=== PATIENT | female | born 1965 | race Two or more races ===

== ENCOUNTER 2019-10-09 09:21 | Inpatient (IN) | payer OTHER ==
[2019-10-09 09:36] VITALS: BMI 22.9
[2019-10-09] MEDS ORDERED: SODIUM CHLORIDE 0.9% 500 ML INFUS.BAG IV ONE ×2 (10:22→11:45)
[2019-10-09] MEDS ORDERED: ONDANSETRON 4 MG/2 ML VIAL IVPUSH ONE (10:26)
[2019-10-09] MEDS ORDERED: ONDANSETRON 4 MG/2 ML VIAL ONE (10:29)
--- NOTE | 2019-10-09 11:06 | PDOC ---
History of Present Illness - General Chief Complaint: Urinary Problem Stated Complaint: PAINFUL URINATION Time Seen by Provider: 10/09/19 10:05 History Source: Patient Exam Limitations: No Limitations - History of Present Illness Initial Comments: 10/09/19 11:00 54-year-old female denies past medical history presents complaining of feeling fatigued, urinary frequency, low back pain, nausea and subjective fever, chills for 2 days with decreased appetite. Denies vomiting, hematuria, chest pain, shortness of breath, vaginal bleeding, vaginal discharge. ROS: GENERAL/CONSTITUTIONAL: Positive fever, chills, weakness HEAD, EYES, EARS, NOSE AND THROAT: No changes in vision, No ear pain or discharge, No sore throat CARDIOVASCULAR: No chest pain RESPIRATORY: No shortness of breath or cough GASTROINTESTINAL: No pain, nausea, vomiting, diarrhea or constipation GENITOURINARY: Urinary frequency, denies hematuria, dysuria MUSCULOSKELETAL: Low back pain SKIN: No rash NEUROLOGIC: No headache, vertigo, loss of consciousness, or loss of sensation PE: GENERAL: Appears uncomfortable HEAD: NCAT EYES: Pupils equal, round and reactive to light, sclera anicteric, conjunctiva clear ENT: pharynx: no erythema, no exudate, uvula midline NECK: supple CHEST: nontender RESP: clear, no w/r/r CARDIO: rrr, no m/g/r ABD: +BS, soft, minimal suprapubic tenderness to palpation, non distended, BACK: Bilateral CVAT EXTREMITIES: Normal range of motion, no edema NEUROLOGICAL: Normal speech, normal gait SKIN: Warm, Dry Past History - Past Medical History Allergies/Adverse Reactions: Allergies Allergy/AdvReac Type Severity Reaction Status Date / Time No Known Allergies Allergy Verified 10/09/19 09:33 COPD: No CHF: No DVT: No - Immunization History Immunization Up to Date: Yes - Psycho Social/Smoking Cessation Hx Smoking History: Never smoked Hx Alcohol Use: No Drug/Substance Use Hx: No *Physical Exam - Vital Signs Last Vital Signs Temp Pulse Resp BP Pulse Ox 97.9 F 109 H 18 105/68 99 10/09/19 09:33 10/09/19 09:33 10/09/19 09:33 10/09/19 09:33 10/09/19 09:33 ED Treatment Course - LABORATORY CBC & Chemistry Diagram: 10/09/19 10:53 10/09/19 10:21 - Medications Given in the ED: ED Medications Discontinued Medications Generic Name Dose Route Start Last Admin Trade Name Kristian PRN Reason Stop Dose Admin Ondansetron HCl 4 mg 10/09/19 10:26 10/09/19 10:53 Zofran Injection IVPUSH 10/09/19 10:27 4 mg ONCE ONE Administration Sodium Chloride 1,000 ml 10/09/19 10:22 10/09/19 10:53 Normal Saline - IV 10/09/19 10:23 1,000 ml ONCE ONE Administration Medical Decision Making - Medical Decision Making 10/09/19 11:04 54-year-old female denies past medical history presents complaining of urinary frequency, nausea, subjective fever and chills, suprapubic discomfort, decreased appetite for 2 days. Will rule out UTI versus pyelonephritis Ordered CBC, BMP, UA, urine culture IV fluids and IV Zofran Reassess 10/09/19 13:29 Reviewed labs and UA results UA > 5k bacteria, 3+ leukocytes, 2+ blood, + nitrites IV ceftriaxone 1gm and IV toradol 30mg ordered 2 L of IV fluids given and IV Zofran Patient tolerating p.o. Admit to Discharge - Discharge Information Problems reviewed: Yes Clinical Impression/Diagnosis: UTI (urinary tract infection) Qualifiers: Urinary tract infection type: site unspecified Hematuria presence: without hematuria Qualified Code(s): N39.0 - Urinary tract infection, site not specified Condition: Stable - Admission Yes - Follow up/Referral Referrals: Katerina Munson MD [Primary Care Provider] - - Patient Discharge Instructions - Post Discharge Activity
[2019-10-09 11:20] LABS: BASO % 0.3 % (0-2.0); EOS % 0.1 % (0-4.5); HEMOGLOBIN 13.4 GM/dL (10.7-15.3); LYMPH % 8.1 % (8-40); MCH 29.1 pg (25.7-33.7); MCHC 33.5 g/dl (32.0-36.0); MEAN CELL VOLUME 86.9 fl (80-96); MEAN PLT VOLUME 9.7 fl (7.5-11.1); MONO % 5.6 % (3.8-10.2); NEUT % 85.9 % (42.8-82.8); PLATELET COUNT 169 K/MM3 (134-434); RDW 12.8 % (11.6-15.6); WHITE BLOOD COUNT 14.5 K/mm3 (4.0-10.0)
[2019-10-09 11:25] LABS: EPI CELLS 1.2 /HPF (0-5/HPF); HYALINE CASTS 4 /lpf (0-8); PH,URINE 5.5 (5.0-8.0); URINE APPEARANCE TURBID; URINE BACTERIA 5191.4 /hpf (NEGATIVE); URINE BILIRUBIN NEGATIVE (NEGATIVE); URINE COLOR YELLOW; URINE GLUCOSE (UA) NEGATIVE (NEGATIVE); URINE KETONE NEGATIVE (NEGATIVE); URINE LEUK ESTERASE 3+ (NEGATIVE); URINE NITRITE POSITIVE (NEGATIVE); URINE PROTEIN 2+ (NEGATIVE); URINE RBC 10 /hpf (0-4); URINE WBC 1007 /hpf (0-5)
[2019-10-09] MEDS ORDERED: ACETAMINOPHEN 500 MG TABLET (FP) PO ONE (11:27)
[2019-10-09] MEDS ORDERED: ACETAMINOPHEN 325 MG TABLET (FP) ONE (11:51)
--- NOTE | 2019-10-09 12:40 | PDOC ---
*Physical Exam - Vital Signs Last Vital Signs Temp Pulse Resp BP Pulse Ox 97.9 F 109 H 18 105/68 99 10/09/19 09:33 10/09/19 09:33 10/09/19 09:33 10/09/19 09:33 10/09/19 09:33 ED Treatment Course - LABORATORY CBC & Chemistry Diagram: 10/09/19 10:53 10/09/19 10:21 - ADDITIONAL ORDERS Additional order review: Laboratory Results 10/09/19 10/09/19 10:53 10:22 Lactic Acid 1.9 Urine Color Yellow Urine Appearance Turbid Urine pH 5.5 Ur Specific [place] 1.007 L Urine Protein 2+ H Urine Glucose (UA) Negative Urine Ketones Negative Urine Blood 2+ H Urine Nitrite Positive H Urine Bilirubin Negative Urine Urobilinogen 1.0 Ur Leukocyte Esterase 3+ H Urine WBC (Auto) 1007 Urine RBC (Auto) 10 Urine Casts (Auto) 4 U Epithel Cells (Auto) 1.2 Urine Bacteria (Auto) 5191.4 10/09/19 10:53 RBC 4.60 MCV 86.9 MCHC 33.5 RDW 12.8 MPV 9.7 Neutrophils % 85.9 H Lymphocytes % 8.1 Monocytes % 5.6 Eosinophils % 0.1 Basophils % 0.3 - Medications Given in the ED: ED Medications Discontinued Medications Generic Name Dose Route Start Last Admin Trade Name Coreyq PRN Reason Stop Dose Admin Acetaminophen 1,000 mg 10/09/19 11:27 10/09/19 11:53 Tylenol - PO 10/09/19 11:28 1,000 mg ONCE ONE Administration Ondansetron HCl 4 mg 10/09/19 10:26 10/09/19 10:53 Zofran Injection IVPUSH 10/09/19 10:27 4 mg ONCE ONE Administration Sodium Chloride 1,000 ml 10/09/19 10:22 10/09/19 10:53 Normal Saline - IV 10/09/19 10:23 1,000 ml ONCE ONE Administration Sodium Chloride 1,000 ml 10/09/19 11:45 10/09/19 11:58 Normal Saline - IV 10/09/19 11:46 1,000 ml ONCE ONE Administration Medical Decision Making - Medical Decision Making 10/09/19 12:38 54-year-old female denies past medical history presents complaining of urinary frequency, nausea, subjective fever and chills, suprapubic discomfort Examination: lower abdominal tenderness to palpation No involuntary guarding or rebound Pt seen by Midlevel Provider under my direct supervision Pt interviewed and examined Ancillary studies reviewed Laboratory Tests 10/09/19 10/09/19 10/09/19 10:22 10:53 10:53 WBC 14.5 H Hgb 13.4 Hct 40.0 Plt Count 169 Lactic Acid 1.9 Ur Leukocyte Esterase 3+ H Urine WBC (Auto) 1007 Urine RBC (Auto) 10 Urine Bacteria (Auto) 5191.4 I agree with plan as outlined by Midlevel Provider Plan for IV Ceftriaxone and po abx as pt can tolerate po 10/09/19 12:40 10/09/19 13:26 I received a call from pt PMD stating she should be admitted Will Admit 10/09/19 16:26 Pt decided she wants to leave the ER Will discharge to home Pt PMD write her for Levaquin She is requesting that I send this abs to another pharmacy Will re write prescription and send to her local pharmacy Clinical impression: UTI, initial presentation Discharge - Discharge Information Problems reviewed: Yes Clinical Impression/Diagnosis: Pyelonephritis UTI (urinary tract infection) Qualifiers: Urinary tract infection type: site unspecified Hematuria presence: without hematuria Qualified Code(s): N39.0 - Urinary tract infection, site not specified Condition: Stable - Admission Yes - Follow up/Referral - Patient Discharge Instructions - Post Discharge Activity
[2019-10-09 12:58] LABS: ALBUMIN 4.3 g/dl (3.4-5.0); BILIRUBIN,TOTAL 1.5 mg/dL (0.2-1); BLOOD UREA NITROGEN 10.6 mg/dL (7-18); CALCIUM 9.2 mg/dL (8.5-10.1); CREATININE 0.8 mg/dL (0.55-1.3); POTASSIUM 3.5 mmol/L (3.5-5.1)
[2019-10-09] MEDS ORDERED: CEFTRIAXONE 1,000 MG in DEXTROSE 5%-WATER - 50 ML IVPB ONE (13:17)
[2019-10-09] MEDS ORDERED: KETOROLAC TROMETHAMINE 30 MG/1 ML VIAL IM ONE (13:18)
[2019-10-09] MEDS ORDERED: KETOROLAC TROMETHAMINE 30 MG/1 ML VIAL IVPUSH ONE (13:20)
[2019-10-09] MEDS ORDERED: CEFTRIAXONE 1 GM/50 ML BAG ONE (13:21)
[2019-10-09] MEDS ORDERED: KETOROLAC TROMETHAMINE 30 MG/1 ML VIAL ONE (13:21)
[2019-10-09 15:42] VITALS: TEMP 98.6
--- NOTE | 2019-10-09 16:05 | HP ---
Admitting History and Physical - Primary Care Physician PCP: Katerina Munson - Admission Chief Complaint: ABD/BACK PAIN History of Present Illness: PRESENTS WITH BACK PAIN DYSUREA 2 DAYS History Source: Medical Record - Smoking History Smoking history: Never smoked - Alcohol/Substance Use Hx Alcohol Use: No Home Medications - Allergies Allergies/Adverse Reactions: Allergies Allergy/AdvReac Type Severity Reaction Status Date / Time No Known Allergies Allergy Verified 10/09/19 09:33 - Home Medications Home Medications: Ambulatory Orders Fluconazole [Diflucan] 150 mg PO ONCE #1 tablet 10/09/19 Fluconazole [Diflucan] 150 mg PO ONCE PRN #1 tablet 10/09/19 levoFLOXacin [Levaquin -] 500 mg PO DAILY #4 tablet 10/09/19 levoFLOXacin [Levaquin -] 500 mg PO DAILY #7 tablet 10/09/19 Review of Systems - Review of Systems Genitourinary: reports: Flank Pain, Frequency Musculoskeletal: reports: Back Pain Physical Examination Vital Signs: Vital Signs Temperature 98.6 F 10/09/19 15:42 Pulse Rate 72 10/09/19 15:42 Respiratory Rate 18 10/09/19 15:42 Blood Pressure 110/56 L 10/09/19 15:42 O2 Sat by Pulse Oximetry (%) 100 10/09/19 15:42 Cardiovascular: Yes: WNL Respiratory: Yes: WNL Gastrointestinal: Yes: WNL Renal/: Yes: CVA Tenderness - Left, CVA Tenderness - Right, Other Labs: CBC, BMP 10/09/19 10:53 10/09/19 10:21 Problem List - Problems (1) Pyelonephritis Code(s): N12 - TUBULO-INTERSTITIAL NEPHRITIS, NOT SPCF ACUTE OR CHRONIC (2) UTI (urinary tract infection) Code(s): N39.0 - URINARY TRACT INFECTION, SITE NOT SPECIFIED Qualifiers: Urinary tract infection type: site unspecified Hematuria presence: without hematuria Qualified Code(s): N39.0 - Urinary tract infection, site not specified Assessment/Plan CEFTRIAXONE IV CHECK CULTURES PATIENT'S DAUGHTER ZALAMCALLED AND WANTS HER MOM TO LEAVE B/C THERE ARE NO BEDS IN THE HOSPITAL FLOORS AND HER MOM IS IN THE E.R. I EXPLAINED SHE WILL NEED IV ABX HOWEVER, WE CAN STAFF CERTIFIED NURSE MIDWIFE HER PO ABX AND SEND HER HOME. IF SHE FEELS SEVERE PAIN, FEVERS, N/V DIZZINESS TO RETURN TO THE E.D. IMMEDIATELY OR CALL 911.
--- NOTE | 2019-10-09 16:08 | DS ---
Physical Examination Vital Signs: Vital Signs Temperature 98.6 F 10/09/19 15:42 Pulse Rate 72 10/09/19 15:42 Respiratory Rate 18 10/09/19 15:42 Blood Pressure 110/56 L 10/09/19 15:42 O2 Sat by Pulse Oximetry (%) 100 10/09/19 15:42 Constitutional: Yes: No Distress Eyes: Yes: WNL HENT: Yes: WNL Neck: Yes: WNL Cardiovascular: Yes: WNL Respiratory: Yes: WNL Gastrointestinal: Yes: WNL Renal/: Yes: Other Labs: CBC, BMP 10/09/19 10:53 10/09/19 10:21 Discharge Summary Problems reviewed: Yes Reason For Visit: UTI,PYELONEPHRITIS Current Active Problems UTI (urinary tract infection) (Acute) Hospital Course: GIVEN IV ABX WILL DC HOME ON PO ABX NO BEDS IN FACILITY AND PT WANTS TO GO HOME Goals: COMPLETE LEVAQUIN 4 DAYS Condition: Stable - Instructions Diet, Activity, Other Instructions: SEE YOUR PRIMARY DOCTOR IN 1 WEEK IF YOU HAVE FEVER OR CHILLS OR ANY COMPLAINTS RETURN TO ED Referrals: Katerina Munson MD [Primary Care Provider] - Disposition: HOME - Home Medications Comprehensive Discharge Medication List: Ambulatory Orders Fluconazole [Diflucan] 150 mg PO ONCE #1 tablet 10/09/19 levoFLOXacin [Levaquin -] 500 mg PO DAILY #4 tablet 10/09/19
[2019-10-09 17:04] VITALS: BP 110/67; PULSE 76
--- NOTE | 2019-10-10 00:34 | PN ---
Teaching Attending Note Name of Resident: Beto Batista ATTENDING PHYSICIAN STATEMENT I saw and evaluated the patient. I reviewed the resident's note and discussed the case with the resident. I agree with the resident's findings and plan as documented. SUBJECTIVE: Patient is a 54 year old woman with no significant past medical history who was diagnosed with pyelonephritis earlier today when she presented to the ER with 2 days of urinary frequency, cloudy urine, bilateral flank, and abdominal pain. She got a dose of IV Ceftriaxone but her family signed her out AMA because there were no medical beds available. She got a dose of PO diflucan and was discharged on PO Levofloxacin. Daughter notes while at home the patient ate but then began to experience nausea, fevers, and worsening flank and abdominal pain , prompting their return to the ER. While in the ED, patient complains of mild shortness of breath. She denies any dysuria, hematuria, changes in strength or sensation. No recent travels or sick contacts. Denies tobacco, alcohol or illicit drug use. OBJECTIVE: Alert Vital Signs Period Temp Pulse Resp BP Sys/Davila Pulse Ox Last 24 Hr 97.9 F-98.6 F 72-109 18-18 105-110/56-68 99-100 HEENT: No Jaundice, eye redness or discharge, PERRLA, EOMI. Normocephalic, atraumatic. External ears are normal and hearing is grossly intact. No nasal discharge. Neck: Supple, nontender. No palpable adenopathy or thyromegaly. No JVD Chest: Good effort. Clear to auscultation and percussion. Heart: Regular. No S3, rub or murmur Abdomen: Not distended, soft, RUQ and bilateral CVA tenderness and no HSM. No rebound or guarding. Normal bowel sounds. Ext: Peripheral pulses intact. No leg edema. Skin: Warm and dry. No petechiae, rash or ecchymosis. Neuro: Alert. Oriented x3. CN 2-12 grossly intact. Sensation grossly intact in all four extremities and DTR are symmetric. Psych: Appropriate mood and affect. Good insight. Home Medications Medication Instructions Recorded Fluconazole [Diflucan] 150 mg PO ONCE #1 tablet 10/09/19 Fluconazole [Diflucan] 150 mg PO ONCE PRN #1 tablet 10/09/19 levoFLOXacin [Levaquin -] 500 mg PO DAILY #4 tablet 10/09/19 levoFLOXacin [Levaquin -] 500 mg PO DAILY #7 tablet 10/09/19 Abnormal Lab Results 10/09/19 10/09/19 10/09/19 10:21 10:53 10:53 WBC 14.5 H Absolute Neuts (auto) 12.4 H Neutrophils % 85.9 H Total Bilirubin 1.5 H AST 55 H ALT 94 H Alkaline Phosphatase 132 H Ur Specific [place] 1.007 L Urine Protein 2+ H Urine Blood 2+ H Urine Nitrite Positive H Ur Leukocyte Esterase 3+ H ASSESSMENT AND PLAN: 1. Pyelonephritis - Elevated LFTs are unexplained. Will get abdominal CT abdomen /pelvis, upper abdominal sonogram, repeat LFTs and lactic acid, get hepatitis serology and treat with IV NS in view of low normal BP. Will treat with IV Zosyn pending culture report - concerned that she may be infected by an organism not sensitive to ceftriaxone. EKG pending. Will continue comprehensive care for all of patients comorbid conditions. 2. DVT prophylaxis - Lovenox 40 mg SQ q 24 hours. 3. Advance directives - Full code
== END 2019-10-09 17:01 | disposition home or self-care (01) | DRG 463 ==
LOC: JER 09:21 → JERBED 13:29
PROVIDERS: ADMIT Family Medicine; ATTEND Family Medicine
DX: N10 Acute pyelonephritis (principal)
CPT/HCPCS: 36415; 80053; 81003; 83605; 85025; 87086; 87186; 99283-25

== ENCOUNTER 2019-10-09 23:19 | Inpatient (IN) | payer OTHER ==
[2019-10-09] MEDS ORDERED: KETOROLAC TROMETHAMINE 30 MG/1 ML VIAL IVPUSH ONE (23:47)
[2019-10-09] MEDS ORDERED: SODIUM CHLORIDE 0.9% 1000 ML INFUS.BAG IV ONE (23:47)
[2019-10-09] MEDS ORDERED: KETOROLAC TROMETHAMINE 30 MG/1 ML VIAL ONE (23:56)
--- NOTE | 2019-10-09 23:56 | PDOC ---
Documentation entered by Nithin Walker SCRIBE, acting as scribe for Andreina Smith DO. Andreina Smith, DO: This documentation has been prepared by the Denise contreras Nirvannie, SCRIBE, under my direction and personally reviewed by me in its entirety. I confirm that the documentation accurately reflects all work, treatment, procedures, and medical decision making performed by me. Attending Attestation - Resident Resident Name: Beto Mccollum - ED Attending Attestation I have performed the following: I have examined & evaluated the patient, The case was reviewed & discussed with the resident, I agree w/resident's findings & plan, Exceptions are as noted - HPI HPI: 10/10/19 00:13 The patient is a 54 year old female, with a significant past medical history of recent diagnosis of pyelonephritis (today), who presents to the emergency department with 2 days of urinary frequency, cloudy urine, bilateral flank, and abdominal pain. As per patients family translating, she was admitted to the ED today for UTI and pyelonephritis but, they signed out AMA secondary to no beds available. Daughter notes while at home the patient ate but then began to experience nausea, fevers, and worsening flank and abdominal pain, prompting their return to the ED. While in the ED, patient complains of mild shortness of breath. She denies any dysuria or hematuria. She denies any changes in strength or sensation. She denies any focal weakness. Allergies: NKDA Primary Care Physician: Dr. Munson - Physicial Exam PE: 10/10/19 00:13 Constitutional: +Warm to touch. +Uncomfortably appearing. Awake, alert, oriented. No acute distress. Head: Normocephalic. Atraumatic Eyes: PERRL. EOMI. Conjunctivae are not pale. ENT: Mucous membranes are moist and intact. Posterior pharynx without exudates or erythema. Uvula midline. Neck: Supple. Full ROM. No lymphadenopathy. Cardiovascular: +Tachycardic. Regular rhythm. S1, S2 regular. Distal pulses are 2+ and symmetric. Pulmonary/Chest: No evidence of respiratory distress. Clear to auscultation bilaterally No wheezing, rales or rhonchi. Abdominal: Soft and non-distended. No rebound, guarding or rigidity. No organomegaly. No palpable masses. Good bowel sounds. Back: +Bilateral CVA tenderness. Musculoskeletal: No edema. No cyanosis. No clubbing. Full range of motion in all extremities. No calf tenderness. Radial/pedal pulses are intact and 2+ bilaterally Skin: Skin is warm and dry. No petechiae. No purpura. Neurological: Alert and oriented to person, place, and time. Cranial nerves II -XII are grossly intact. Normal speech. Strength is grossly symmetric. No sensory deficits. Psychiatric: Good eye contact. Normal interaction, affect and behavior. - Medical Decision Making 10/10/19 00:17 I, Dr. Andreina Smith, DO, attest that this document has been prepared under my direction and personally reviewed by me in its entirety. I further attest, that it accurately reflects all work, treatment, procedures and medical decision -making performed by me. a/p: 54yo female dx with uti/pyelo earlier with worsening lower abd pain and flank pain R>L -suspect pyelo vs infected stone, ua earlier showed blood -will repeat labs, rocephin, ivf hydration, zofran -R>L flank pain and cva ttp -will send for spiral ct to eval of poss renal colic -will medicate and reasssess -last po meds were at 7p -pt appears sick 10/10/19 00:39 case discussed with LORENE who accepts pt to service Discharge - Discharge Information Problems reviewed: Yes Clinical Impression/Diagnosis: UTI (urinary tract infection), Pyelonephritis Condition: Guarded - Admission Yes - Follow up/Referral - Patient Discharge Instructions - Post Discharge Activity Heart Score/ECG Review - ECG Intrepretation Comment:: 10/09/19 23:55 sinus at 97, nl axis, nl inteval, no acute st/t wave findings
[2019-10-09] MEDS ORDERED: FAMOTIDINE 20 MG/50 ML IVPB 20 MG/50 ML MG IVPB ONE (23:58)
[2019-10-09] MEDS ORDERED: ONDANSETRON 4 MG/2 ML VIAL IVPUSH ONE (23:58)
--- NOTE | 2019-10-09 23:59 | PDOC ---
History of Present Illness - General Chief Complaint: Pain Stated Complaint: ABD PAIN ( REVISIT Time Seen by Provider: 10/09/19 23:39 History Source: Family Exam Limitations: Language Barrier (frisian) - History of Present Illness Initial Comments: 10/10/19 06:58 HPI: 54F w/o known PMH presenting with worsening abdominal and flank pain. Pt had 3 days of fevers and 1 day of b/l flank pain. Was seen in this ED during the day of 10/09/19 and subsequently admitted for IV abx. Pt later AMA'd 2/ not having a bed upstairs. Now back with worsening abdominal and flank pain. Denies dysuria , hematuria, frequency. Denies chest pain, sob. Endorses fevers, nausea w/o vomiting. PO tolerant. Past History - Past Medical History Allergies/Adverse Reactions: Allergies Allergy/AdvReac Type Severity Reaction Status Date / Time No Known Allergies Allergy Verified 10/09/19 23:47 Home Medications: Ambulatory Orders NK [No Known Home Medication] 10/10/19 COPD: No CHF: No DVT: No - Immunization History Immunization Up to Date: Yes - Psycho Social/Smoking Cessation Hx Smoking History: Never smoked Hx Alcohol Use: No Drug/Substance Use Hx: No Review of Systems - Review of Systems Comments:: 10/10/19 06:58 ROS: CONSTITUTIONAL: Denies F / C RESP: Denies SOB CARD: Denies chest pain, palpitations GI: Endorses flank pain and epigastric pain. Endorses nausea. Denies N / D, bloody stool, inability to tolerate PO : Denies dysuria, hematuria, frequency *Physical Exam - Vital Signs Last Vital Signs Temp Pulse Resp BP Pulse Ox 99.4 F 98 H 18 99/53 L 98 10/09/19 23:43 10/09/19 23:43 10/09/19 23:43 10/09/19 23:43 10/09/19 23:43 - Physical Exam 10/10/19 06:58 PE: GEN: acute discomfort. AAOx3 HEENT: NC/AT. No facial asymmetry. Normal voice. Supple neck w/ FROM. CV: S1/S2, RRR, no m/r/g LUNG: CTAB, no wheezes, crackles, rales, rhonchi. GI: +TTP of the epigastrium and suprapubically. +CVAT b/l; r > l. soft, ndnt, + BS, no guarding, no rebound. EXTREMITIES: No LE edema. No obvious deformities of all extremities. SKIN: warm, dry, normal turgor PSYCH: normal mood and affect NEURO: Moving all extremities well. ED Treatment Course - LABORATORY CBC & Chemistry Diagram: 10/10/19 00:16 10/10/19 00:16 - RADIOLOGY Radiology Studies Ordered: Category Date Time Status SPIRAL- RENAL-STONE CT [CT] Stat CT Scan 10/09/19 23:58 Ordered Medical Decision Making - Medical Decision Making 10/09/19 23:40 MDM: 54F with worsening b/l flank pain and fevers. DDx likely pyelonephritis, consider PUD, gastritis, colitis - cbc, cmp, lipase, lactate - bcx - ua, uc - abx - fluids - Spiral CT - Likely admit 10/10/19 00:30 Pt was endorsed to medicine team and admitted Discharge - Discharge Information Problems reviewed: Yes Clinical Impression/Diagnosis: Pyelonephritis UTI (urinary tract infection) Qualifiers: Urinary tract infection type: site unspecified Hematuria presence: without hematuria Qualified Code(s): N39.0 - Urinary tract infection, site not specified Condition: Guarded - Follow up/Referral - Patient Discharge Instructions - Post Discharge Activity
[2019-10-10] MEDS ORDERED: CEFTRIAXONE 1 GM in DEXTROSE 5%-WATER - 100 ML IVPB ONE
[2019-10-10] MEDS ORDERED: SODIUM CHLORIDE 0.9% 1000 ML INFUS.BAG IV ONE (00:06)
[2019-10-10] MEDS ORDERED: CEFTRIAXONE 1 GM/50 ML BAG ONE (00:29)
[2019-10-10] MEDS ORDERED: FAMOTIDINE 20 MG/50 ML IVPB 20 MG/50 ML MG IVPB ONE (00:29)
[2019-10-10] MEDS ORDERED: ONDANSETRON 4 MG/2 ML VIAL ONE ×3 (00:29→09:13)
[2019-10-10 00:38] LABS: BASO % 0.1 % (0-2.0); EOS % 0.1 % (0-4.5); HEMATOCRIT 34.3 % (32.4-45.2); HEMOGLOBIN 11.4 GM/dL (10.7-15.3); LYMPH % 6.7 % (8-40); MCHC 33.3 g/dl (32.0-36.0); MEAN PLT VOLUME 9.5 fl (7.5-11.1); MONO % 9.2 % (3.8-10.2); NEUT % 83.9 % (42.8-82.8); PLATELET COUNT 141 K/MM3 (134-434); RBC 3.94 M/mm3 (3.60-5.2); RDW 12.7 % (11.6-15.6); WHITE BLOOD COUNT 12.1 K/mm3 (4.0-10.0)
[2019-10-10 01:17] LABS: ALBUMIN 3.1 g/dl (3.4-5.0); BLOOD UREA NITROGEN 10.8 mg/dL (7-18); CALCIUM 8.4 mg/dL (8.5-10.1); CREATININE 0.7 mg/dL (0.55-1.3); POTASSIUM 3.7 mmol/L (3.5-5.1); TOT PROT 6.1 g/dl (6.4-8.2)
[2019-10-10 01:32] LABS: HYALINE CASTS 1 /lpf (0-8); URINE APPEARANCE CLEAR; URINE BILIRUBIN NEGATIVE (NEGATIVE); URINE COLOR YELLOW; URINE GLUCOSE (UA) NEGATIVE (NEGATIVE); URINE KETONE TRACE (NEGATIVE); URINE LEUK ESTERASE 1+ (NEGATIVE); URINE NITRITE NEGATIVE (NEGATIVE); URINE PROTEIN TRACE (NEGATIVE); URINE RBC 3 /hpf (0-4); URINE UROBILINOGEN 4.0 E.U/dl mg/dL (0.2-1.0); URINE WBC 39 /hpf (0-5)
[2019-10-10] MEDS ORDERED: ACETAMINOPHEN 1000 MG/100 ML VIAL (NON FORMULARY) IVPB ONE (01:44)
[2019-10-10] MEDS ORDERED: MORPHINE SULFATE 2 MG/ML VIAL IVPUSH PRN (01:46)
[2019-10-10] MEDS ORDERED: ONDANSETRON 4 MG/2 ML VIAL IVPUSH PRN (01:51)
--- NOTE | 2019-10-10 01:52 | HP ---
CHIEF COMPLAINT: Fever, abdominal pain PCP: Dr. Munson HISTORY OF PRESENT ILLNESS: Pt. is a 54 y.o. F w/o PMHx. presenting for the second admission today for abdominal pain and fevers secondary to urinary tract infection. History provided by daughter at bedside who assisted in translation. Pt. received IV ceftriaxone and Diflucan duriong hospital stay. Pt. was discharged earlier today because of the unavailability of beds in the hospital on Levaquin and Diflucan. Pt. was instructed to return if she was experiencing fevers or worsening abdominal pain. Pt. states she has only had on UTI in the past, unclear of when. Pt. endorses sensation of incomplete voiding, nausea without vomiting which has since subsided since receiving zofran. Pt. endorses b /l flank pain that radiates to her suprapubic region. Pt. endorses decreased PO intake over the last 3 days, last BM was Monday, and dry mouth. Pt. denies any chest pain, shortness of breath, hematuria, history of renal stones or any family history of renal disorders. Pt. states she last had colonoscopy 15 years ago and was treated for bacterial infection? Pt. endorses unremarkable EGD at that time as well. Pt. denies having an ALUMINUM CONTAINER TESTER and denies having a Pap Smear done. Pt. denies having Flu shot. ER course was notable for: (1)2L IVF, CBC, CMP, Spiral CT (2) Toradol, Zofran, Ceftriaxone (3) BCx. and UCx. pending from initial presentation Recent Travel: No PAST MEDICAL HISTORY: None PAST SURGICAL HISTORY: None Social History: Smoking: Denies Alcohol: Denies Drugs: Denies Allergies No Known Allergies Allergy (Verified 10/09/19 23:47) HOME MEDICATIONS: Home Medications Medication Instructions Recorded Fluconazole [Diflucan] 150 mg PO ONCE #1 tablet 10/09/19 Fluconazole [Diflucan] 150 mg PO ONCE PRN #1 tablet 10/09/19 levoFLOXacin [Levaquin -] 500 mg PO DAILY #4 tablet 10/09/19 levoFLOXacin [Levaquin -] 500 mg PO DAILY #7 tablet 10/09/19 REVIEW OF SYSTEMS As above. PHYSICAL EXAMINATION Vital Signs - 24 hr 10/09/19 23:43 Temperature 99.4 F Pulse Rate 98 H Respiratory 18 Rate Blood Pressure 99/53 L O2 Sat by Pulse 98 Oximetry (%) GENERAL: Awake, alert, and fully oriented, in mild distress 2/2 pain. HEAD: Normal with no signs of trauma. EYES: Extraocular movements intact, sclera anicteric, conjunctiva clear. EARS, NOSE, THROAT: Ears normal, nares patent, oropharynx clear without exudates. Dry mucous membranes. NECK: Normal range of motion, supple without lymphadenopathy, JVD, or masses. LUNGS: Breath sounds equal, clear to auscultation bilaterally. No wheezes, and no crackles. No accessory muscle use. HEART: Regular rate and rhythm, normal S1 and S2 without murmur ABDOMEN: Soft, diffuse tenderness to palpation most prominent in suprapubic region LLQ, RLQ and RUQ, not distended, normoactive bowel sounds, guarding MUSCULOSKELETAL: Normal range of motion at all joints. No bony deformities or tenderness. b/l CVA tenderness however more prominent on R. UPPER EXTREMITIES: warm, well-perfused. No cyanosis. No clubbing. No peripheral edema. LOWER EXTREMITIES: 2+ dorsal pedal pulses, warm, well-perfused. No calf tenderness. No peripheral edema. NEUROLOGICAL: Cranial nerves II-XII grossly intact. Normal speech. Gait not assessed. PSYCHIATRIC: Cooperative. Good eye contact. Appropriate mood and affect. SKIN: Warm, dry, normal turgor, no rashes or lesions noted Laboratory Results - last 24 hr 10/10/19 10/10/19 10/10/19 00:16 00:16 00:16 WBC 12.1 H RBC 3.94 Hgb 11.4 Hct 34.3 MCV 87.0 MCH 29.0 MCHC 33.3 RDW 12.7 Plt Count 141 MPV 9.5 Absolute Neuts (auto) 10.2 H Neutrophils % 83.9 H Lymphocytes % 6.7 L Monocytes % 9.2 Eosinophils % 0.1 Basophils % 0.1 Nucleated RBC % 0 PTT (Actin FS) 33.6 Sodium Potassium Chloride Carbon Dioxide Anion Gap BUN Creatinine Est GFR (CKD-EPI)AfAm Est GFR (CKD-EPI)NonAf Random Glucose Lactic Acid Calcium Total Bilirubin AST ALT Alkaline Phosphatase Creatine Kinase 43 Troponin I < 0.02 Total Protein Albumin Lipase Urine Color Urine Appearance Urine pH Ur Specific [place] Urine Protein Urine Glucose (UA) Urine Ketones Urine Blood Urine Nitrite Urine Bilirubin Urine Urobilinogen Ur Leukocyte Esterase Urine WBC (Auto) Urine RBC (Auto) Urine Casts (Auto) U Epithel Cells (Auto) Urine Bacteria (Auto) 10/10/19 10/10/19 10/10/19 00:16 00:16 01:08 WBC RBC Hgb Hct MCV MCH MCHC RDW Plt Count MPV Absolute Neuts (auto) Neutrophils % Lymphocytes % Monocytes % Eosinophils % Basophils % Nucleated RBC % PTT (Actin FS) Sodium 140 Potassium 3.7 Chloride 107 Carbon Dioxide 25 Anion Gap 8 BUN 10.8 Creatinine 0.7 Est GFR (CKD-EPI)AfAm 113.05 Est GFR (CKD-EPI)NonAf 97.54 Random Glucose 113 H Lactic Acid 1.0 Calcium 8.4 L Total Bilirubin 2.0 H AST 40 H ALT 71 H Alkaline Phosphatase 133 H Creatine Kinase Troponin I Total Protein 6.1 L Albumin 3.1 L Lipase 70 L Urine Color Yellow Urine Appearance Clear Urine pH 7.0 D Ur Specific [place] 1.009 L Urine Protein Trace Urine Glucose (UA) Negative Urine Ketones Trace H Urine Blood Trace Urine Nitrite Negative Urine Bilirubin Negative Urine Urobilinogen 4.0 e.u/dl H Ur Leukocyte Esterase 1+ H Urine WBC (Auto) 39 Urine RBC (Auto) 3 Urine Casts (Auto) 1 U Epithel Cells (Auto) 5.0 Urine Bacteria (Auto) 6.0 ASSESSMENT/PLAN: Pt. is a 54 y.o. F w/o PMHx. presenting for the second admission today for abdominal pain and fevers secondary to urinary tract infection. #Sepsis 2/2 Pyelonephritis Initial UA: 2+ protein, 2+ blood, Nitrite +, 3+ LE, 1007 WBCs and 5000+ bacteria --> Rpt. shows improvement in all areas CVA tenderness WBC: 14.5-->12.1 will start Zosyn, ID consult to Dr. Daigle appreciated f/u Spiral CT for stone, if Pt. has renal stone will upgrade Abx. to Carbapenem as per Uptodate aggressive IVF hydration LA: 1.9 Toradol and Morphine for pain control trend BMPs to monitor renal function monitor Is and Os--> if low output will bladder scan and consider placing Muse #Transaminitis associated with Hyperbilirubinemia Tbili 1.5-->2.0 AST/ALT now downtrending f/u CT scan f/u Abd. US elevation may be secondary to sepsis and borderline low BP, will obtain imaging to r/o concomitant cholecystitis #FEN NS @ 125 monitor electrolytes and replete as needed Regular Diet #DVT Ppx. Hep SQ TID Visit type - Emergency Visit Emergency Visit: Yes ED Registration Date: 10/10/19 Care time: The patient presented to the Emergency Department on the above date and was hospitalized for further evaluation of their emergent condition. - New Patient This patient is new to me today: Yes Date on this admission: 10/10/19 - Critical Care Critical Care patient: No ATTENDING PHYSICIAN STATEMENT I saw and evaluated the patient. I reviewed the resident's note and discussed the case with the resident. I agree with the resident's findings and plan as documented. SUBJECTIVE: OBJECTIVE: ASSESSMENT AND PLAN:
[2019-10-10] MEDS ORDERED: SODIUM CHLORIDE 1,000 ML IV SCH (02:00)
[2019-10-10] MEDS ORDERED: ONDANSETRON 4 MG/2 ML VIAL IVPUSH ONE (02:05)
[2019-10-10] MEDS ORDERED: ACETAMINOPHEN INJECTION 100 ML IVPB ONE (02:14)
[2019-10-10] MEDS ORDERED: PIPERACILLIN/TAZOB 3.375 GM 3.375 GM/50 ML BAG IVPB ONE ×2 (04:54→10:05)
[2019-10-10] MEDS: PIPERACILLIN/TAZOB 3.375 GM 3.375 GM in DEXTROSE 5%-WATER - 50 ML IVPB SCH ×3 (05:00→11:47)
[2019-10-10] MEDS ORDERED: HEPARIN NA (PORCINE) 5,000 UNITS/ML 1ML VIAL ONE (06:11)
[2019-10-10] MEDS: HEPARIN NA (PORCINE) 5,000 UNITS/ML 1ML VIAL SQ SCH ×3 (06:23→21:12)
[2019-10-10 06:46] LABS: BASO % 0.2 % (0-2.0); EOS % 0.1 % (0-4.5); HEMATOCRIT 30.6 % (32.4-45.2); HEMOGLOBIN 10.3 GM/dL (10.7-15.3); MCH 29.5 pg (25.7-33.7); MCHC 33.7 g/dl (32.0-36.0); MEAN CELL VOLUME 87.5 fl (80-96); MEAN PLT VOLUME 9.3 fl (7.5-11.1); MONO % 11.7 % (3.8-10.2); PLATELET COUNT 125 K/MM3 (134-434); RDW 12.5 % (11.6-15.6); WHITE BLOOD COUNT 11.9 K/mm3 (4.0-10.0)
[2019-10-10 07:06] LABS: INR 2.14 (0.83-1.09); PROTHROMBIN TIME (PATIENT) 25.4 SEC (9.7-13.0)
[2019-10-10 07:09] LABS: ALBUMIN 2.6 g/dl (3.4-5.0); BILIRUBIN,TOTAL 1.9 mg/dL (0.2-1); BLOOD UREA NITROGEN 8.3 mg/dL (7-18); CALCIUM 7.7 mg/dL (8.5-10.1); CREATININE 0.6 mg/dL (0.55-1.3); MAGNESIUM 1.8 mg/dL (1.8-2.4); PHOSPHOROUS 2.6 mg/dL (2.5-4.9); POTASSIUM 3.8 mmol/L (3.5-5.1); TOT PROT 5.2 g/dl (6.4-8.2)
[2019-10-10] MEDS ORDERED: KETOROLAC TROMETHAMINE 15 MG/ML VIAL ONE (09:13)
[2019-10-10] MEDS: KETOROLAC TROMETHAMINE 15 MG/ML VIAL IVPUSH PRN ×2 (09:23→17:29)
--- NOTE | 2019-10-10 11:30 | PN ---
Progress Note (short form) - Note Progress Note: ID consult dictated imp/reccd bilateral pyelonehritis right greater then left UTI abnormal LFTS continue zosyn f/u cultures f/u ultrasound Problem List - Problems (1) Pyelonephritis Code(s): N12 - TUBULO-INTERSTITIAL NEPHRITIS, NOT SPCF ACUTE OR CHRONIC (2) UTI (urinary tract infection) Code(s): N39.0 - URINARY TRACT INFECTION, SITE NOT SPECIFIED Qualifiers: Urinary tract infection type: site unspecified Hematuria presence: without hematuria Qualified Code(s): N39.0 - Urinary tract infection, site not specified (3) Abnormal LFTs Code(s): R94.5 - ABNORMAL RESULTS OF LIVER FUNCTION STUDIES
--- NOTE | 2019-10-10 11:58 | EKG ---
Test Reason : Blood Pressure : / mmHG Vent. Rate : 097 BPM Atrial Rate : 097 BPM P-R Int : 132 ms QRS Dur : 084 ms QT Int : 336 ms P-R-T Axes : 054 060 048 degrees QTc Int : 426 ms NORMAL SINUS RHYTHM NORMAL ECG NO PREVIOUS ECGS AVAILABLE Confirmed by MOMO DIAZ, CYNTHIA ([id number]) on 10/10/2019 11:57:50 AM Referred By: Confirmed By:CYNTHIA BARR MD
--- NOTE | 2019-10-10 11:59 | CONS ---
INFECTIOUS DISEASE CONSULTATION DATE OF CONSULTATION: DATE OF DICTATION: 10/10/2019 HISTORY: This is a 54-year-old woman otherwise healthy. She was originally seen in the emergency room on the . At that time, she had presented with some fatigue and some fevers and chills for 2 days. This is on the . She had no vomiting. She had no diarrhea, chest pain. She was noted to have pyuria in the ER. She had bilateral CVA discomfort, and she was noted to have a white count of 14.5. She was given ceftriaxone, given 2 L of fluid, and she was admitted. She was discharged later in the day as there were not enough beds, and she wanted to go home. She was discharged on Levaquin and Diflucan. She returned again the same evening with continued complaints of not feeling well and continued fever. She had worsening flank and abdominal pain. She denies any dysuria. She has no hematuria. There has been no recent travel. MEDICATIONS: She takes no medications regularly. She was started on Levaquin and Diflucan yesterday, which she has not started. SOCIAL HISTORY: Her PCP is Dr. Munson. She got an influenza shot this year. No history of cigarette, alcohol, or substance use. She apparently works in a school. PAST MEDICAL HISTORY: Unremarkable. PAST SURGICAL HISTORY: Unremarkable. REVIEW OF SYSTEMS: As per HPI. PHYSICAL EXAMINATION: Vital Signs: She is afebrile. Her maximum temperature is 99.4, pulse is 89, blood pressure 108/67, respiratory rate 21. She is saturating 100% on room air. HEENT: She is normocephalic. Her eyes are anicteric. Neck: Supple. Lungs: Clear to auscultation. Heart: Regular rate and rhythm. Abdomen: Soft. She has right upper quadrant tenderness to palpation. She has bilateral tenderness right greater than left. She has no suprapubic pain. White count on the was 14.5, today is 11.5, hemoglobin 10.3, platelets 125. Her BUN 8, creatinine 0.6. Interestingly, her LFTs on the and last night were elevated with a total bilirubin of 2, AST 40, ALT 71, alkaline phosphatase 133. Urine culture from the is growing greater than 100,000 nonlactose pain coordinator. Blood cultures are pending. She had a CAT scan done in the ER that was notable for mild bibasilar atelectatic changes, mild stranding around the right lower kidney pole consistent with possible pyelonephritis. She has no acute appendicitis. Cannot rule out cystitis. Mild dilatation of the left ureter without evidence of obstructing stone. Liver, spleen, pancreas were normal. Urinalysis of the right upper quadrant was done and is pending. In summary, this is a 54-year-old woman admitted with pyelonephritis and abnormal LFTs. I think it would be reasonable given the nonlactose pain coordinator growing in her urine to continue her on piperacillin, tazobactam with further follow up of cultures. Would follow up the ultrasound of her abdomen to evaluate it for biliary disease and follow up her LFTs as well. Further recommendations to follow. James IBARRA/[id number]
--- NOTE | 2019-10-10 12:07 | PN ---
Progress Note, Physician Chief Complaint: UTI Abdominal Pain History of Present Illness: Previous notes and events reviewed awake and alert NAD complain of abdominal pain leukocytosis - Current Medication List Current Medications: Active Medications Heparin Sodium (Porcine) (Heparin -) 5,000 unit SQ TID CHARLES Last Admin: 10/10/19 06:23 Dose: 5,000 unit Sodium Chloride (Normal Saline -) 1,000 mls @ 125 mls/hr IV ASDIR CHARLES Stop: 10/11/19 09:59 Last Admin: 10/10/19 04:00 Dose: 125 mls/hr Piperacillin Sod/Tazobactam (Sod 4.5 gm/ Dextrose) 100 mls @ 200 mls/hr IVPB Q8H-IV CHARLES; Protocol Ketorolac Tromethamine (Toradol Injection -) 15 mg IVPUSH Q6H PRN PRN Reason: PAIN LEVEL 4 - 6 Stop: 10/15/19 01:45 Last Admin: 10/10/19 09:23 Dose: 15 mg Morphine Sulfate (Morphine Sulfate) 2 mg IVPUSH Q4H PRN PRN Reason: PAIN LEVEL 7 - 10 Ondansetron HCl (Zofran Injection) 4 mg IVPUSH Q6H PRN PRN Reason: NAUSEA - Objective Vital Signs: Vital Signs Temperature 98.1 F 10/10/19 11:46 Pulse Rate 84 10/10/19 11:46 Respiratory Rate 21 H 10/10/19 09:15 Blood Pressure 109/65 10/10/19 11:46 O2 Sat by Pulse Oximetry (%) 100 10/10/19 11:46 Constitutional: Yes: No Distress, Calm Eyes: Yes: Conjunctiva Clear HENT: Yes: Atraumatic Cardiovascular: Yes: Regular Rate and Rhythm Respiratory: Yes: Regular, CTA Bilaterally Gastrointestinal: Yes: Normal Bowel Sounds, Soft, Tenderness (diffuse), Tenderness, Epigastrium Musculoskeletal: Yes: WNL Extremities: Yes: WNL Edema: No Neurological: Yes: Alert, Oriented Psychiatric: Yes: Alert, Oriented Labs: CBC, BMP 10/10/19 05:40 10/10/19 05:40 INR, PTT INR 2.14 (0.83-1.09) H 10/10/19 05:40 Problem List - Problems (1) Epigastric abdominal pain Assessment/Plan: -Abdominal US shows thickening of gallbladder wall with a questionable small sludge and without evidence of gallstones, positive Fields's sign, cannot rule out acute cholecystitis, right hepatic lobe echogenic lesion 2.3cmin maximum dimension that may represent cavernous hemangioma -CTAP shows minimal bibasal atelectatic changes, mild stranding around the right renal lower pole with minimal edema, cannot rule out right pyelonephritis , epiploic appendagitis of the adjacent ascending colon. appendocloth without CT evidence of acute appendicitis, mild smooth thickening of the urinary bladder wall likely due to inadequate distention, mild dilatation of left ureter , without gross evidence of obstructing stone -leukocytosis -afebrile -Surgery Consult -HIDA scan with EF ordered -pain control -IV hydration -NPO Code(s): R10.13 - EPIGASTRIC PAIN (2) Abnormal LFTs Assessment/Plan: -monitor LFTs daily -LFTs showing downtrend -AST 27, ALT 57, Alk Phos 112 Code(s): R94.5 - ABNORMAL RESULTS OF LIVER FUNCTION STUDIES (3) Pyelonephritis Assessment/Plan: -ID consult -Leukocytosis -afebrile -Zosyn -received Ceftriaxone in ER -pain control -CTAP shows minimal bibasal atelectatic changes, mild stranding around the right renal lower pole with minimal edema, cannot rule out right pyelonephritis , epiploic appendagitis of the adjacent ascending colon. appendocloth without CT evidence of acute appendicitis, mild smooth thickening of the urinary bladder wall likely due to inadequate distention, mild dilatation of left ureter , without gross evidence of obstructing stone -BC and UC pending Code(s): N12 - TUBULO-INTERSTITIAL NEPHRITIS, NOT SPCF ACUTE OR CHRONIC (4) UTI (urinary tract infection) Assessment/Plan: -ID consult -Leukocytosis -afebrile -Zosyn -received Ceftriaxone in ER -pain control -CTAP shows minimal bibasal atelectatic changes, mild stranding around the right renal lower pole with minimal edema, cannot rule out right pyelonephritis , epiploic appendagitis of the adjacent ascending colon. appendocloth without CT evidence of acute appendicitis, mild smooth thickening of the urinary bladder wall likely due to inadequate distention, mild dilatation of left ureter , without gross evidence of obstructing stone -UA shows 1+, trace ketones -UC pending Code(s): N39.0 - URINARY TRACT INFECTION, SITE NOT SPECIFIED Qualifiers: Urinary tract infection type: site unspecified Hematuria presence: without hematuria Qualified Code(s): N39.0 - Urinary tract infection, site not specified Assessment/Plan see problem list dvt ppx
[2019-10-10] MEDS ORDERED: MORPHINE SULFATE 2 MG/ML VIAL ONE (12:44)
[2019-10-10] MEDS: DEXTROSE 5%-NORMAL SALINE 1,000 ML IV SCH ×2 (12:46→17:23)
[2019-10-10 16:48] VITALS: BMI 25.1
--- NOTE | 2019-10-10 16:51 | CON.GI ---
Consult Consult Specialty:: GI Referred by:: Hospitalist Service - History Source History Provided By: Patient, Family Member Limitations to Obtaining History: No Limitations - Past Medical History Additional Medical History: denies - Past Surgical History Additional Surgical History: , right knee arthroscopy - Alcohol/Substance Use Hx Alcohol Use: No History of Substance Use: reports: None - Smoking History Smoking history: Never smoked - Social History Usual Living Arrangement: With Child ADL: Independent Place of : Other ([place]) Came to [place]year[place] 2017 Home Medications - Allergies Allergies/Adverse Reactions: Allergies Allergy/AdvReac Type Severity Reaction Status Date / Time No Known Allergies Allergy Verified 10/09/19 23:47 - Home Medications Home Medications: Ambulatory Orders NK [No Known Home Medication] 10/10/19 Family Medical History Other Family History: Mother: Alive: DM II. Father: : [place]: 60. 3 brothers/ 2 sisters: healthy. 3 daughters, 1 son: healthy. no fam h/o cancer Review of Systems - Review of Systems Constitutional: reports: Fever Respiratory: denies: Cough Gastrointestinal: reports: Abdominal Pain Genitourinary: reports: Dysuria Physical Exam-GI Vital Signs: Vital Signs Temperature 98.1 F 10/10/19 11:46 Pulse Rate 74 10/10/19 12:00 Respiratory Rate 16 10/10/19 12:00 Blood Pressure 108/63 10/10/19 12:00 O2 Sat by Pulse Oximetry (%) 99 10/10/19 12:00 Constitutional: Yes: Calm Eyes: No: Sclera Icterus Cardiovascular: Yes: Regular Rate and Rhythm Respiratory: Yes: CTA Bilaterally Gastrointestinal Inspection: No: Scars ...Auscultate: Yes: Normoactive Bowel Sounds ...Palpate: Yes: Tenderness (ruq. + gandhi's). No: Hepatomegaly, Soft, Splenomegaly ...Percussion: No: Tympanitic Edema: LLE: 1+, RLE: 1+ Neurological: Yes: Alert Labs: CBC, BMP 10/10/19 05:40 10/10/19 05:40 INR, PTT INR 2.14 (0.83-1.09) H 10/10/19 05:40 Hepatic Panel Total Bilirubin 1.9 mg/dL (0.2-1) H 10/10/19 05:40 AST 27 U/L (15-37) 10/10/19 05:40 ALT 57 U/L (13-61) 10/10/19 05:40 Alkaline Phosphatase 112 U/L (45-117) 10/10/19 05:40 Albumin 2.6 g/dl (3.4-5.0) L 10/10/19 05:40 Problem List - Problems (1) Right upper quadrant abdominal pain Assessment/Plan: with associated right flank and back pain: Thickened GB, however also with ? thickened portion of right kidney with urinary symptoms ? pyelo, ? acalculous cholecystitis. ? if LFTS reactive Improved on IV Abx NPO Surgical eval ID eval HIDA performed. Result pending Eval of possible pyelo per primary team Code(s): R10.11 - RIGHT UPPER QUADRANT PAIN
[2019-10-10] MEDS ORDERED: PIPERACILLIN/TAZOBACTAM 4.5 GM VIAL IVPB ONE (17:07)
[2019-10-10] MEDS ORDERED: DEXTROSE 5%-WATER 100 ML IVPB ONE (17:07)
[2019-10-10] MEDS: PIPERACILLIN/TAZOB 4.5 GM 4.5 GM in DEXTROSE 5%-WATER 100 ML IVPB SCH (17:21)
--- NOTE | 2019-10-10 17:28 | CON.GI ---
Consult Consult Specialty:: GI Referred by:: Dr. Munson Reason for Consultation:: Liver lesion - History of Present Illness Chief Complaint: Abdominal pain. Daughter aiding in interpretation as patient speaks azeri History of Present Illness: 54F admitted for evaluation of fevers. Also developed ruq/back pain. Pain started monday. Developed urinary burning after urinating monday as well. No change with meals. Noticed diminished appetite. + fever at home with nausea. Noted thickened portion of right kidney and bladder on CT scan. liver lesion noted as well. Noted thickened GB wall on US without gallstones. No simiar episodes in the past. INR was elevated. No H/O liver disease. LFTs were elevated, now improving. - History Source History Provided By: Patient, Family Member Limitations to Obtaining History: No Limitations - Past Medical History Additional Medical History: denies - Past Surgical History Additional Surgical History: , right knee arthroscopy - Alcohol/Substance Use Hx Alcohol Use: No History of Substance Use: reports: None - Smoking History Smoking history: Never smoked - Social History Usual Living Arrangement: With Child () ADL: Independent Place of : Other ([place]) History of Recent Travel: No Home Medications - Allergies Allergies/Adverse Reactions: Allergies Allergy/AdvReac Type Severity Reaction Status Date / Time No Known Allergies Allergy Verified 10/09/19 23:47 - Home Medications Home Medications: Ambulatory Orders NK [No Known Home Medication] 10/10/19 Family Medical History Other Family History: Mother: Alive: DM II. Father: : 60: [place]. 3 brothers, 4 sisters: healthy. 3 daughters, 1 son: healthy. No family h/o cancer, liver dz Review of Systems - Review of Systems Constitutional: reports: Chills, Fever Respiratory: denies: Cough Gastrointestinal: reports: Abdominal Pain, Nausea Genitourinary: reports: Burning, Dysuria Physical Exam-GI Vital Signs: Vital Signs Temperature 99.1 F 10/10/19 16:42 Pulse Rate 84 10/10/19 16:42 Respiratory Rate 20 10/10/19 16:42 Blood Pressure 101/57 L 10/10/19 16:42 O2 Sat by Pulse Oximetry (%) 98 10/10/19 16:42 Constitutional: Yes: Calm Eyes: No: Sclera Icterus Cardiovascular: Yes: Regular Rate and Rhythm. No: Murmur Respiratory: Yes: CTA Bilaterally Gastrointestinal Inspection: No: Distention ...Auscultate: Yes: Normoactive Bowel Sounds ...Palpate: Yes: Tenderness (TTP RUQ, + gandhi's. + right flank tenderness) ...Percussion: No: Tympanitic Edema: LLE: Trace, RLE: Trace Neurological: Yes: Alert Labs: CBC, BMP 10/10/19 05:40 10/10/19 05:40 INR, PTT INR 2.14 (0.83-1.09) H 10/10/19 05:40 Hepatic Panel Total Bilirubin 1.9 mg/dL (0.2-1) H 10/10/19 05:40 AST 27 U/L (15-37) 10/10/19 05:40 ALT 57 U/L (13-61) 10/10/19 05:40 Alkaline Phosphatase 112 U/L (45-117) 10/10/19 05:40 Albumin 2.6 g/dl (3.4-5.0) L 10/10/19 05:40 Imaging - Results Cat Scan: Report Reviewed, Image Reviewed Ultrasound: Report Reviewed Problem List - Problems (1) Right upper quadrant abdominal pain Assessment/Plan: with associated right flank and back pain: Thickened GB, however also with ? thickened portion of right kidney with urinary symptoms ? pyelo, ? acalculous cholecystitis. ? if LFTS reactive Improved on IV Abx NPO Surgical eval ID eval HIDA performed. Result pending Eval of possible pyelo / thickened bladder per primary team Code(s): R10.11 - RIGHT UPPER QUADRANT PAIN (2) Liver lesion Assessment/Plan: will anh further evaluation with contrast imaging. Discussed with daughter. gave her my office card to arrange follow-up Check hepatitis A/B/C serologies Code(s): K76.9 - LIVER DISEASE, UNSPECIFIED (3) Coagulopathy Assessment/Plan: Unclear cause of elevated INR. No h/o liver disease Checking hepatitis serologies Consider heme eval Ordered repeat PT/INR Code(s): D68.9 - COAGULATION DEFECT, UNSPECIFIED
--- NOTE | 2019-10-10 18:19 | CONSULT ---
Consult Consult Specialty:: Nephrology Reason for Consultation:: pyelo - History of Present Illness Chief Complaint: fever and abdomoinal pain History of Present Illness: Pt is a 54 year old female who presents to the ER with abdominal pain and fever. She was found to have UTI and pyelo. She was admitted for treatment. Pt was also found to have elevated LFTs and is under workup. She says that the pain responds to morphine. SHe complains of dysuria and bilateral flank pain. She complains of nausea and decreased PO intake. - History Source History Provided By: Patient - Past Medical History Additional Medical History: denies - Past Surgical History Additional Surgical History: , right knee arthroscopy - Alcohol/Substance Use Hx Alcohol Use: No History of Substance Use: reports: None - Smoking History Smoking history: Never smoked - Social History Usual Living Arrangement: With Child () ADL: Independent History of Recent Travel: No Home Medications - Allergies Allergies/Adverse Reactions: Allergies Allergy/AdvReac Type Severity Reaction Status Date / Time No Known Allergies Allergy Verified 10/09/19 23:47 - Home Medications Home Medications: Ambulatory Orders NK [No Known Home Medication] 10/10/19 Family Medical History Family History: Denies Review of Systems - Review of Systems Constitutional: reports: Chills, Fever, Malaise Eyes: reports: No Symptoms HENT: reports: No Symptoms Neck: reports: No Symptoms Cardiovascular: reports: No Symptoms Respiratory: reports: No Symptoms Gastrointestinal: reports: Abdominal Pain Genitourinary: reports: Dysuria Musculoskeletal: reports: No Symptoms Neurological: reports: No Symptoms Endocrine: reports: No Symptoms Hematology/Lymphatic: reports: No Symptoms Psychiatric: reports: No Symptoms Physical Exam Vital Signs: Vital Signs Temperature 99.1 F 10/10/19 16:42 Pulse Rate 84 10/10/19 16:42 Respiratory Rate 20 10/10/19 16:42 Blood Pressure 101/57 L 10/10/19 16:42 O2 Sat by Pulse Oximetry (%) 98 10/10/19 16:42 Constitutional: Yes: Calm Eyes: Yes: Conjunctiva Clear HENT: Yes: Atraumatic Neck: Yes: Supple Cardiovascular: Yes: S1, S2 Respiratory: Yes: CTA Bilaterally Gastrointestinal: Yes: Soft Renal/: Yes: CVA Tenderness - Left, CVA Tenderness - Right Musculoskeletal: Yes: WNL Edema: No Neurological: Yes: Oriented Psychiatric: Yes: Oriented Labs: CBC, BMP 10/10/19 05:40 10/10/19 05:40 Laboratory Tests 10/10/19 10/10/19 10/10/19 00:16 00:16 01:08 WBC 12.1 H Sodium Potassium Creatinine 0.7 Calcium 8.4 L Total Bilirubin 2.0 H ALT 71 H Alkaline Phosphatase 133 H Urine Glucose (UA) Negative Urine Ketones Trace H Urine Urobilinogen 4.0 e.u/dl H Ur Leukocyte Esterase 1+ H 10/10/19 10/10/19 05:40 05:40 WBC 11.9 H Sodium 142 Potassium 3.8 Creatinine 0.6 Calcium Total Bilirubin 1.9 H ALT 57 Alkaline Phosphatase 112 Urine Glucose (UA) Urine Ketones Urine Urobilinogen Ur Leukocyte Esterase Imaging - Results Cat Scan: Report Reviewed Problem List - Problems (1) Abnormal LFTs Code(s): R94.5 - ABNORMAL RESULTS OF LIVER FUNCTION STUDIES (2) Pyelonephritis Code(s): N12 - TUBULO-INTERSTITIAL NEPHRITIS, NOT SPCF ACUTE OR CHRONIC (3) UTI (urinary tract infection) Code(s): N39.0 - URINARY TRACT INFECTION, SITE NOT SPECIFIED Qualifiers: Urinary tract infection type: site unspecified Hematuria presence: without hematuria Qualified Code(s): N39.0 - Urinary tract infection, site not specified Assessment/Plan Current Medications Generic Name Dose Route Start Last Admin Trade Name Freq PRN Reason Stop Dose Admin Heparin Sodium (Porcine) 5,000 unit 10/10/19 06:00 10/10/19 14:01 Heparin - SQ Not Given TID CHARLES Piperacillin Sod/Tazobactam 100 mls @ 200 mls/hr 10/10/19 18:00 10/10/19 17: 21 Sod 4.5 gm/ Dextrose IVPB 200 mls/hr Q8H-IV CHARLES Administration Protocol Dextrose/Sodium Chloride 1,000 mls @ 83 mls/hr 10/10/19 12:15 10/10/19 17:23 D5-Ns - IV 83 mls/hr ASDIR CHARLES Administration Ketorolac Tromethamine 15 mg 10/10/19 01:46 10/10/19 17:29 Toradol Injection - IVPUSH 10/15/19 01:45 15 mg Q6H PRN Administration PAIN LEVEL 4 - 6 Morphine Sulfate 2 mg 10/10/19 01:46 10/10/19 12:47 Morphine Sulfate IVPUSH 2 mg Q4H PRN Administration PAIN LEVEL 7 - 10 Ondansetron HCl 4 mg 10/10/19 01:51 Zofran Injection IVPUSH Q6H PRN NAUSEA Impression 1. UTI 2. lyelonephritis 3. elevated LFT Plan - cont fluids - follow cultures - cont abx - ID input appreciated - follow GI
--- NOTE | 2019-10-10 19:06 | CONSULT ---
Consult Consult Specialty:: surgery Reason for Consultation:: Abdominal pain - History of Present Illness History of Present Illness: 4 year old female, with a significant past medical history of recent diagnosis of pyelonephritis (today), who presents to the emergency department with 2 days of urinary frequency, cloudy urine, bilateral flank, and abdominal pain. As per patients family translating, she was admitted to the ED today for UTI and pyelonephritis but, they signed out AMA secondary to no beds available. Daughter notes while at home the patient ate but then began to experience nausea , fevers, and worsening flank and abdominal pain, prompting their return to the ED - History Source History Provided By: Patient, Family Member Limitations to Obtaining History: Language Barrier - Past Medical History Additional Medical History: denies - Past Surgical History Additional Surgical History: , right knee arthroscopy - Alcohol/Substance Use Hx Alcohol Use: No History of Substance Use: reports: None - Smoking History Smoking history: Never smoked - Social History Usual Living Arrangement: With Child () ADL: Independent History of Recent Travel: No Home Medications - Allergies Allergies/Adverse Reactions: Allergies Allergy/AdvReac Type Severity Reaction Status Date / Time No Known Allergies Allergy Verified 10/09/19 23:47 - Home Medications Home Medications: Ambulatory Orders NK [No Known Home Medication] 10/10/19 Physical Exam Vital Signs: Vital Signs Temperature 99.1 F 10/10/19 16:42 Pulse Rate 84 10/10/19 16:42 Respiratory Rate 20 10/10/19 16:42 Blood Pressure 101/57 L 10/10/19 16:42 O2 Sat by Pulse Oximetry (%) 98 10/10/19 16:42 Labs: CBC, BMP 10/10/19 05:40 10/10/19 05:40 Imaging - Results Cat Scan: Report Reviewed, Image Reviewed Ultrasound: Report Reviewed Other: Report Reviewed, Image Reviewed (HIDA) Problem List - Problems (1) Abnormal LFTs Problems reviewed: Yes Code(s): R94.5 - ABNORMAL RESULTS OF LIVER FUNCTION STUDIES (2) Coagulopathy Problems reviewed: Yes Code(s): D68.9 - COAGULATION DEFECT, UNSPECIFIED (3) Epigastric abdominal pain Problems reviewed: Yes Code(s): R10.13 - EPIGASTRIC PAIN (4) Right upper quadrant abdominal pain Problems reviewed: Yes Code(s): R10.11 - RIGHT UPPER QUADRANT PAIN (5) Pyelonephritis Problems reviewed: Yes Code(s): N12 - TUBULO-INTERSTITIAL NEPHRITIS, NOT SPCF ACUTE OR CHRONIC Assessment/Plan 54 yr old admitted with pyrlonephritis asked to evaluate for RUQ abdominal pain HIDA negative Ct more consistent with Pyelo no need for surgical interevention continue antibiiotics Will follow
--- NOTE | 2019-10-10 19:38 | PN ---
Progress Note (short form) - Note Progress Note: HIDA w/ filling of gallbladder. no enteric transit. Patient did receive morphine and non dilated CBD not suggestive of CBD obstruction. LFT's improved as well. Ordered MRCP to eval CBD. Continue NPO / IV Abx Problem List - Problems (1) Right upper quadrant abdominal pain Code(s): R10.11 - RIGHT UPPER QUADRANT PAIN (2) Liver lesion Code(s): K76.9 - LIVER DISEASE, UNSPECIFIED (3) Coagulopathy Code(s): D68.9 - COAGULATION DEFECT, UNSPECIFIED
--- NOTE | 2019-10-10 21:01 | HOSP ---
Subjective - Review of Symptoms Events since last encounter: RN called covering RN LPN CNA to see patient for report of swelling to hands and face. Subjective: patient and family report patient with swelling to face and hands. pain to hands with making fist. Denies rash or itching. reports dry mouth/throat. denies sob or difficulty breathing. pt reports face feels "hot" Physical Examination Vital Signs: Vital Signs Temperature 99.1 F 10/10/19 16:42 Pulse Rate 84 10/10/19 16:42 Respiratory Rate 20 10/10/19 16:42 Blood Pressure 101/57 L 10/10/19 16:42 O2 Sat by Pulse Oximetry (%) 98 10/10/19 16:42 Constitutional: Yes: Well Nourished HENT: Yes: Other (face noted with puffiness around eyes, cheeks, lips, no erythema, no rash tongue midline, no swelling noted, uvula midline) Extremities: Yes: Other (hands with trace edema throughout. No erythema) Wound/Incision: Yes: Other (no rash, no urticaria, no redness) Labs: CBC, BMP 10/10/19 05:40 10/10/19 05:40 Hospitalist Encounter Assessment: edema to face and hands - pt received 5-6L Normal saline since yesterday at 11am; received 2LNS bolus in the am and then signed out AMA; received 2L bolus again upon rearrival to ED last night followed by NS drip. - likely due to fluid in s/o sepsis, increased capillary permeability - family c/f allergic reaction, will give benadryl 25mg x 1 although this is doubtful - DC IVF for now, reassess in am. - cool compresses to face for comfort
[2019-10-10] MEDS ORDERED: POTASSIUM CHLORIDE 10 MEQ in DEXTROSE 5%-NORMAL SALINE 995 ML IVPB SCH (21:15)
[2019-10-10] MEDS ORDERED: DEXTROSE 5%-NORMAL SALINE 995 ML with POTASSIUM CHLORIDE 10 MEQ IVPB SCH (21:15)
[2019-10-11] MEDS ORDERED: PIPERACILLIN/TAZOBACTAM 4.5 GM VIAL IVPB ONE ×3 (00:49→16:57)
[2019-10-11] MEDS ORDERED: DEXTROSE 5%-WATER 100 ML IVPB ONE ×3 (00:49→16:57)
[2019-10-11 02:05] LABS: EPI CELLS 4.7 /HPF (0-5/HPF); HYALINE CASTS 9 /lpf (0-8); URINE APPEARANCE CLOUDY; URINE BACTERIA 1.4 /hpf (NEGATIVE); URINE BILIRUBIN 1+ (NEGATIVE); URINE COLOR DK YELLOW; URINE GLUCOSE (UA) NEGATIVE (NEGATIVE); URINE KETONE 1+ (NEGATIVE); URINE LEUK ESTERASE NEGATIVE (NEGATIVE); URINE NITRITE NEGATIVE (NEGATIVE); URINE PROTEIN 1+ (NEGATIVE); URINE RBC 8 /hpf (0-4)
[2019-10-11] MEDS: PIPERACILLIN/TAZOB 4.5 GM 4.5 GM in DEXTROSE 5%-WATER 100 ML IVPB SCH ×3 (02:45→17:09)
[2019-10-11 03:43] LABS: URINE WBC 11.1 /hpf (0-5)
[2019-10-11] MEDS: HEPARIN NA (PORCINE) 5,000 UNITS/ML 1ML VIAL SQ SCH ×3 (05:59→21:13)
--- NOTE | 2019-10-11 07:47 | PN ---
Progress Note, Physician History of Present Illness: feels better this am - Current Medication List Current Medications: Active Medications Heparin Sodium (Porcine) (Heparin -) 5,000 unit SQ TID CHARLES Last Admin: 10/11/19 05:59 Dose: 5,000 unit Piperacillin Sod/Tazobactam (Sod 4.5 gm/ Dextrose) 100 mls @ 200 mls/hr IVPB Q8H-IV CHARLES; Protocol Last Admin: 10/11/19 02:45 Dose: 200 mls/hr Ketorolac Tromethamine (Toradol Injection -) 15 mg IVPUSH Q6H PRN PRN Reason: PAIN LEVEL 4 - 6 Stop: 10/15/19 01:45 Last Admin: 10/10/19 17:29 Dose: 15 mg Morphine Sulfate (Morphine Sulfate) 2 mg IVPUSH Q4H PRN PRN Reason: PAIN LEVEL 7 - 10 Last Admin: 10/10/19 12:47 Dose: 2 mg Ondansetron HCl (Zofran Injection) 4 mg IVPUSH Q6H PRN PRN Reason: NAUSEA - Objective Vital Signs: Vital Signs Temperature 99.1 F 10/11/19 06:00 Pulse Rate 80 10/11/19 06:00 Respiratory Rate 20 10/11/19 06:00 Blood Pressure 116/65 10/11/19 06:00 O2 Sat by Pulse Oximetry (%) 98 10/10/19 21:00 Cardiovascular: Yes: Regular Rate and Rhythm Respiratory: Yes: Regular, CTA Bilaterally Gastrointestinal: Yes: Normal Bowel Sounds, Soft, Tenderness (RUQ AND RT FLANK) Labs: CBC, BMP 10/10/19 05:40 10/10/19 05:40 INR, PTT INR 2.14 (0.83-1.09) H 10/10/19 05:40 Problem List - Problems (1) Right upper quadrant abdominal pain Assessment/Plan: -Abdominal US shows thickening of gallbladder wall with a questionable small sludge and without evidence of gallstones, positive Fields's sign, cannot rule out acute cholecystitis, right hepatic lobe echogenic lesion 2.3cmin maximum dimension that may represent cavernous hemangioma -CTAP shows minimal bibasal atelectatic changes, mild stranding around the right renal lower pole with minimal edema, cannot rule out right pyelonephritis , epiploic appendagitis of the adjacent ascending colon. appendocloth without CT evidence of acute appendicitis, mild smooth thickening of the urinary bladder wall likely due to inadequate distention, mild dilatation of left ureter , without gross evidence of obstructing stone -leukocytosis -afebrile -Surgery Consult -HIDA scan with EF not c/w acute-dilation---Abdominal US shows thickening of gallbladder wall with a questionable small sludge and without evidence of gallstones, positive Fields's sign, cannot rule out acute cholecystitis, right hepatic lobe echogenic lesion 2.3cmin maximum dimension that may represent cavernous hemangioma -MRCP -leukocytosis Resolved -afebrile -Surgery Consult -pain control -IV hydration -NPO Code(s): R10.11 - RIGHT UPPER QUADRANT PAIN (2) Abnormal LFTs Assessment/Plan: -monitor LFTs daily -LFTs showing downtrend -AST 27, ALT 57, Alk Phos 112 Code(s): R94.5 - ABNORMAL RESULTS OF LIVER FUNCTION STUDIES (3) Coagulopathy Assessment/Plan: improving--inr--1.7 Code(s): D68.9 - COAGULATION DEFECT, UNSPECIFIED (4) Liver lesion Assessment/Plan: probaly hemangioma await mri Code(s): K76.9 - LIVER DISEASE, UNSPECIFIED (5) Pyelonephritis Assessment/Plan: -ID consult -Leukocytosis -afebrile -Zosyn - Microbiology 10/10/19 01:08 Urine - Urine Clean Catch Urine Culture - Final NO GROWTH OBTAINED 10/09/19 00:16 Blood - Peripheral Venous Blood Culture - Preliminary NO GROWTH OBTAINED AFTER 24 HOURS, INCUBATION TO CONTINUE FOR 4 DAYS. 10/09/19 00:16 Blood - Peripheral Venous Blood Culture - Preliminary NO GROWTH OBTAINED AFTER 24 HOURS, INCUBATION TO CONTINUE FOR 4 DAYS. -CTAP shows minimal bibasal atelectatic changes, mild stranding around the right renal lower pole with minimal edema, cannot rule out right pyelonephritis , epiploic appendagitis of the adjacent ascending colon. appendocloth without CT evidence of acute appendicitis, mild smooth thickening of the urinary bladder wall likely due to inadequate distention, mild dilatation of left ureter , without gross evidence of obstructing stone Code(s): N12 - TUBULO-INTERSTITIAL NEPHRITIS, NOT SPCF ACUTE OR CHRONIC
[2019-10-11 08:25] LABS: BASO % 0.2 % (0-2.0); EOS % 0.2 % (0-4.5); HEMATOCRIT 30.1 % (32.4-45.2); HEMOGLOBIN 10.1 GM/dL (10.7-15.3); MCHC 33.7 g/dl (32.0-36.0); MEAN CELL VOLUME 86.2 fl (80-96); MEAN PLT VOLUME 9.8 fl (7.5-11.1); MONO % 9.4 % (3.8-10.2); NEUT % 75.2 % (42.8-82.8); PLATELET COUNT 133 K/MM3 (134-434); RBC 3.49 M/mm3 (3.60-5.2); RDW 12.7 % (11.6-15.6); WHITE BLOOD COUNT 9.4 K/mm3 (4.0-10.0)
[2019-10-11 08:27] LABS: INR 1.7 (0.83-1.09); PROTHROMBIN TIME (PATIENT) 20.2 SEC (9.7-13.0)
[2019-10-11 08:29] LABS: ACTIVATED PTT 37.4 SECONDS (25.2-36.5)
[2019-10-11 08:32] LABS: ALBUMIN 2.5 g/dl (3.4-5.0); BILIRUBIN,DIRECT 0.4 mg/dL (0.0-0.2); BILIRUBIN,TOTAL 0.6 mg/dL (0.2-1); BLOOD UREA NITROGEN 9.1 mg/dL (7-18); CALCIUM 7.8 mg/dL (8.5-10.1); CREATININE 0.6 mg/dL (0.55-1.3); POTASSIUM 3.2 mmol/L (3.5-5.1); TOT PROT 5.2 g/dl (6.4-8.2)
--- NOTE | 2019-10-11 09:39 | PN ---
Progress Note (short form) - Note Progress Note: feeling better today vss sleeping confortably exam less tender WBC decreased to 9 Continue observation Problem List - Problems (1) Abnormal LFTs Code(s): R94.5 - ABNORMAL RESULTS OF LIVER FUNCTION STUDIES (2) Coagulopathy Code(s): D68.9 - COAGULATION DEFECT, UNSPECIFIED (3) Epigastric abdominal pain Code(s): R10.13 - EPIGASTRIC PAIN (4) Right upper quadrant abdominal pain Code(s): R10.11 - RIGHT UPPER QUADRANT PAIN (5) Pyelonephritis Code(s): N12 - TUBULO-INTERSTITIAL NEPHRITIS, NOT SPCF ACUTE OR CHRONIC
[2019-10-11] MEDS: KCL 10 MEQ IVPB 10 MEQ/100 ML INFUS.BAG IVPB SCH ×3 (10:20→10:50)
[2019-10-11] MEDS: D5-1/2NS+30 MEQ KCL - 30 MEQ/1,000 ML INFUS.BAG IV SCH (10:20)
[2019-10-11] MEDS ORDERED: POTASSIUM CHLORIDE ORAL LIQUID 20 MEQ/15 ML PO ONE (10:22)
[2019-10-11 11:07] LABS: MAGNESIUM 1.9 mg/dL (1.8-2.4)
--- NOTE | 2019-10-11 13:38 | PN.GI ---
GI Progress Note Subjective: Some RUQ pain No urinary symptoms hepatitis serologies pending INR improved - Objective Vital Signs: Vital Signs Temperature 97.9 F 10/11/19 12:55 Pulse Rate 69 10/11/19 12:55 Respiratory Rate 16 10/11/19 12:55 Blood Pressure 112/60 10/11/19 12:55 O2 Sat by Pulse Oximetry (%) 98 10/11/19 09:00 Constitutional: Calm Eyes: No: Sclera Icterus Cardiovascular: Yes: Regular Rate and Rhythm. No: Murmur Respiratory: Yes: CTA Bilaterally Gastrointestinal Inspection: No: Hernia, Scars ...Auscultate: Yes: Normoactive Bowel Sounds ...Palpate: Yes: Tenderness (TTP RUQ) ...Percussion: Yes: Other (No CVA tenderness). No: Tympanitic Edema: No (No LE edema) Neurological: Yes: Alert Labs: CBC, BMP 10/11/19 07:10 10/11/19 07:10 INR, PTT INR 1.70 (0.83-1.09) H 10/11/19 07:10 Hepatic Panel Total Bilirubin 0.6 mg/dL (0.2-1) 10/11/19 07:10 Direct Bilirubin 0.4 mg/dL (0.0-0.2) H 10/11/19 07:10 AST 21 U/L (15-37) 10/11/19 07:10 ALT 45 U/L (13-61) 10/11/19 07:10 Alkaline Phosphatase 100 U/L (45-117) 10/11/19 07:10 Albumin 2.5 g/dl (3.4-5.0) L 10/11/19 07:10 Problem List - Problems (1) Right upper quadrant abdominal pain Assessment/Plan: Predominantly RUQ pain. had discusstio with Dr. Pfeiffer. Not convinced this was primarily cholecystitis but will reassess her. Agreed with MRCP. I have changed it to MRCP given HIDA finidngs as well as MRI w/w/o contrast to evaluate portal vascularute and liver/gallbladder/renal anatomy more closely as well as to follow-up liver lesion IV Abx per ID Clear liquids Follow-up hepatitis serologies Code(s): R10.11 - RIGHT UPPER QUADRANT PAIN (2) Liver lesion Assessment/Plan: As above. changed to MRI/MRCP with and without contrast to help clarify etiology of acute issues as well as to obtain more information regarding liver lesion. Code(s): K76.9 - LIVER DISEASE, UNSPECIFIED (3) Coagulopathy Assessment/Plan: Improving without intervention Heme eval Code(s): D68.9 - COAGULATION DEFECT, UNSPECIFIED
--- NOTE | 2019-10-11 17:21 | PN ---
Progress Note, Physician History of Present Illness: Pt seen and examined at bedside. She says that she feels better today. She denies fevers. She does not feel well yet. - Current Medication List Current Medications: Active Medications Heparin Sodium (Porcine) (Heparin -) 5,000 unit SQ TID CHARLES Last Admin: 10/11/19 13:26 Dose: 5,000 unit Piperacillin Sod/Tazobactam (Sod 4.5 gm/ Dextrose) 100 mls @ 200 mls/hr IVPB Q8H-IV CHARLES; Protocol Last Admin: 10/11/19 17:09 Dose: 200 mls/hr Potassium Chloride/Dextrose/Sod Cl (D5-1/2ns+30 Meq Kcl -) 30 meq in 1,000 mls @ 83 mls/hr IV ASDIR CHARLES Last Admin: 10/11/19 10:20 Dose: 83 mls/hr Ketorolac Tromethamine (Toradol Injection -) 15 mg IVPUSH Q6H PRN PRN Reason: PAIN LEVEL 4 - 6 Stop: 10/15/19 01:45 Last Admin: 10/10/19 17:29 Dose: 15 mg Morphine Sulfate (Morphine Sulfate) 2 mg IVPUSH Q4H PRN PRN Reason: PAIN LEVEL 7 - 10 Last Admin: 10/10/19 12:47 Dose: 2 mg Ondansetron HCl (Zofran Injection) 4 mg IVPUSH Q6H PRN PRN Reason: NAUSEA - Objective Vital Signs: Vital Signs Temperature 97.9 F 10/11/19 12:55 Pulse Rate 69 10/11/19 12:55 Respiratory Rate 16 10/11/19 12:55 Blood Pressure 112/60 10/11/19 12:55 O2 Sat by Pulse Oximetry (%) 98 10/11/19 09:00 Constitutional: Yes: Calm Eyes: Yes: Conjunctiva Clear HENT: Yes: Atraumatic Neck: Yes: Supple Cardiovascular: Yes: S1, S2 Respiratory: Yes: CTA Bilaterally Gastrointestinal: Yes: Tenderness Genitourinary: Yes: WNL Musculoskeletal: Yes: WNL Edema: No Neurological: Yes: Oriented Psychiatric: Yes: Oriented Labs: CBC, BMP 10/11/19 07:10 10/11/19 07:10 INR, PTT INR 1.70 (0.83-1.09) H 10/11/19 07:10 Problem List - Problems (1) Abnormal LFTs Code(s): R94.5 - ABNORMAL RESULTS OF LIVER FUNCTION STUDIES (2) Pyelonephritis Code(s): N12 - TUBULO-INTERSTITIAL NEPHRITIS, NOT SPCF ACUTE OR CHRONIC (3) UTI (urinary tract infection) Code(s): N39.0 - URINARY TRACT INFECTION, SITE NOT SPECIFIED Qualifiers: Urinary tract infection type: site unspecified Hematuria presence: without hematuria Qualified Code(s): N39.0 - Urinary tract infection, site not specified Assessment/Plan Current Medications Generic Name Dose Route Start Last Admin Trade Name Freq PRN Reason Stop Dose Admin Heparin Sodium (Porcine) 5,000 unit 10/10/19 06:00 10/11/19 13:26 Heparin - SQ 5,000 unit TID CHARLES Administration Piperacillin Sod/Tazobactam 100 mls @ 200 mls/hr 10/10/19 18:00 10/11/19 17: 09 Sod 4.5 gm/ Dextrose IVPB 200 mls/hr Q8H-IV CHARLES Administration Protocol Potassium Chloride/Dextrose/Sod Cl 30 meq in 1,000 mls @ 83 mls/hr 10/11/19 09 :45 10/11/19 10:20 D5-1/2ns+30 Meq Kcl - IV 83 mls/hr ASDIR CHARLES Administration Ketorolac Tromethamine 15 mg 10/10/19 01:46 10/10/19 17:29 Toradol Injection - IVPUSH 10/15/19 01:45 15 mg Q6H PRN Administration PAIN LEVEL 4 - 6 Morphine Sulfate 2 mg 10/10/19 01:46 10/10/19 12:47 Morphine Sulfate IVPUSH 2 mg Q4H PRN Administration PAIN LEVEL 7 - 10 Ondansetron HCl 4 mg 10/10/19 01:51 Zofran Injection IVPUSH Q6H PRN NAUSEA Microbiology 10/10/19 01:08 Urine - Urine Clean Catch Urine Culture - Final NO GROWTH OBTAINED 10/09/19 10:53 Urine - Urine Clean Catch Urine Culture - Final Escherichia Coli 10/09/19 00:16 Blood - Peripheral Venous Blood Culture - Preliminary NO GROWTH OBTAINED AFTER 24 HOURS, INCUBATION TO CONTINUE FOR 4 DAYS. 10/09/19 00:16 Blood - Peripheral Venous Blood Culture - Preliminary NO GROWTH OBTAINED AFTER 24 HOURS, INCUBATION TO CONTINUE FOR 4 DAYS. Impression 1. UTI 2. plyelonephritis 3. elevated LFT Plan - cont fluids - cont abx - follow mrcp - follow GI - will follow prn
[2019-10-11] MEDS: KETOROLAC TROMETHAMINE 15 MG/ML VIAL IVPUSH PRN (22:53)
[2019-10-12] MEDS ORDERED: PIPERACILLIN/TAZOBACTAM 4.5 GM VIAL IVPB ONE ×3 (00:23→16:17)
[2019-10-12] MEDS ORDERED: DEXTROSE 5%-WATER 100 ML IVPB ONE ×3 (00:23→16:18)
[2019-10-12] MEDS: D5-1/2NS+30 MEQ KCL - 30 MEQ/1,000 ML INFUS.BAG IV SCH ×2 (01:15→14:30)
[2019-10-12] MEDS: PIPERACILLIN/TAZOB 4.5 GM 4.5 GM in DEXTROSE 5%-WATER 100 ML IVPB SCH ×3 (02:39→17:18)
[2019-10-12] MEDS ORDERED: ACETAMINOPHEN 325 MG TABLET (FP) PO ONE (05:22)
[2019-10-12] MEDS: HEPARIN NA (PORCINE) 5,000 UNITS/ML 1ML VIAL SQ SCH ×3 (05:34→21:10)
[2019-10-12 08:52] LABS: BASO % 0.5 % (0-2.0); EOS % 1.6 % (0-4.5); HEMATOCRIT 31.1 % (32.4-45.2); HEMOGLOBIN 10.4 GM/dL (10.7-15.3); LYMPH % 25.8 % (8-40); MCH 28.7 pg (25.7-33.7); MCHC 33.5 g/dl (32.0-36.0); MEAN CELL VOLUME 85.6 fl (80-96); MEAN PLT VOLUME 9.5 fl (7.5-11.1); MONO % 11.9 % (3.8-10.2); NEUT % 60.2 % (42.8-82.8); PLATELET COUNT 150 K/MM3 (134-434); RBC 3.64 M/mm3 (3.60-5.2); RDW 12.6 % (11.6-15.6); WHITE BLOOD COUNT 4.9 K/mm3 (4.0-10.0)
[2019-10-12 09:32] LABS: ALBUMIN 2.6 g/dl (3.4-5.0); BILIRUBIN,TOTAL 0.6 mg/dL (0.2-1); BLOOD UREA NITROGEN 5.1 mg/dL (7-18); CALCIUM 8.3 mg/dL (8.5-10.1); CREATININE 0.5 mg/dL (0.55-1.3); MAGNESIUM 2.1 mg/dL (1.8-2.4); POTASSIUM 3.6 mmol/L (3.5-5.1); TOT PROT 5.6 g/dl (6.4-8.2)
--- NOTE | 2019-10-12 09:53 | PN ---
Progress Note, Physician Chief Complaint: Pyelonephritis History of Present Illness: NAD feels weak Daughter at bedside c/o cough - Current Medication List Current Medications: Active Medications Heparin Sodium (Porcine) (Heparin -) 5,000 unit SQ TID CHARLES Last Admin: 10/12/19 05:34 Dose: 5,000 unit Piperacillin Sod/Tazobactam (Sod 4.5 gm/ Dextrose) 100 mls @ 200 mls/hr IVPB Q8H-IV CHARLES; Protocol Last Admin: 10/12/19 02:39 Dose: 200 mls/hr Potassium Chloride/Dextrose/Sod Cl (D5-1/2ns+30 Meq Kcl -) 30 meq in 1,000 mls @ 83 mls/hr IV ASDIR CHARLES Last Admin: 10/12/19 01:15 Dose: 83 mls/hr Ketorolac Tromethamine (Toradol Injection -) 15 mg IVPUSH Q6H PRN PRN Reason: PAIN LEVEL 4 - 6 Stop: 10/15/19 01:45 Last Admin: 10/11/19 22:53 Dose: 15 mg Morphine Sulfate (Morphine Sulfate) 2 mg IVPUSH Q4H PRN PRN Reason: PAIN LEVEL 7 - 10 Last Admin: 10/10/19 12:47 Dose: 2 mg Ondansetron HCl (Zofran Injection) 4 mg IVPUSH Q6H PRN PRN Reason: NAUSEA - Objective Vital Signs: Vital Signs Temperature 97.9 F 10/12/19 07:39 Pulse Rate 67 10/12/19 07:39 Respiratory Rate 16 10/12/19 07:39 Blood Pressure 116/70 10/12/19 07:39 O2 Sat by Pulse Oximetry (%) 98 10/11/19 21:00 Constitutional: Yes: Well Nourished, No Distress, Calm Cardiovascular: Yes: Regular Rate and Rhythm Respiratory: Yes: Regular Gastrointestinal: Yes: Normal Bowel Sounds, Soft Genitourinary: Yes: WNL Musculoskeletal: Yes: WNL Extremities: Yes: WNL Edema: No Peripheral Pulses WNL: Yes Neurological: Yes: Alert, Oriented Psychiatric: Yes: Alert, Oriented Labs: CBC, BMP 10/12/19 08:17 10/12/19 08:17 INR, PTT INR 1.70 (0.83-1.09) H 10/11/19 07:10 Assessment/Plan (1) Right upper quadrant abdominal pain Assessment/Plan: -Resolved -Abdominal US shows thickening of gallbladder wall with a questionable small sludge and without evidence of gallstones, positive Fields's sign, cannot rule out acute cholecystitis, right hepatic lobe echogenic lesion 2.3cmin maximum dimension that may represent cavernous hemangioma -CTAP shows minimal bibasal atelectatic changes, mild stranding around the right renal lower pole with minimal edema, cannot rule out right pyelonephritis , epiploic appendagitis of the adjacent ascending colon. appendocloth without CT evidence of acute appendicitis, mild smooth thickening of the urinary bladder wall likely due to inadequate distention, mild dilatation of left ureter , without gross evidence of obstructing stone -leukocytosis -afebrile -Surgery Consult appreciated- no surgical intervention recommended at this time -HIDA scan with EF not c/w acute-dilation---Abdominal US shows thickening of gallbladder wall with a questionable small sludge and without evidence of gallstones, positive Fields's sign, cannot rule out acute cholecystitis, right hepatic lobe echogenic lesion 2.3cmin maximum dimension that may represent cavernous hemangioma -MRCP results pending -leukocytosis Resolved -afebrile -Surgery Consult -pain control -IV hydration -Clear liquid diet -Zofran for nausea PRN Code(s): R10.11 - RIGHT UPPER QUADRANT PAIN (2) Abnormal LFTs Assessment/Plan: -normalized -LFTs showing downtrend -2/2 to levaquin? Code(s): R94.5 - ABNORMAL RESULTS OF LIVER FUNCTION STUDIES (3) Coagulopathy Assessment/Plan: improving--inr--1.7 Code(s): D68.9 - COAGULATION DEFECT, UNSPECIFIED (4) Liver lesion Assessment/Plan: -probably hemangioma -await MRI results Code(s): K76.9 - LIVER DISEASE, UNSPECIFIED (5) Pyelonephritis Assessment/Plan: -ID consult -Leukocytosis -afebrile -Zosyn - Microbiology 10/10/19 01:08 Urine - Urine Clean Catch Urine Culture - Final NO GROWTH OBTAINED 10/09/19 00:16 Blood - Peripheral Venous Blood Culture - Preliminary NO GROWTH OBTAINED AFTER 24 HOURS, INCUBATION TO CONTINUE FOR 4 DAYS. 10/09/19 00:16 Blood - Peripheral Venous Blood Culture - Preliminary NO GROWTH OBTAINED AFTER 24 HOURS, INCUBATION TO CONTINUE FOR 4 DAYS. -CTAP shows minimal bibasal atelectatic changes, mild stranding around the right renal lower pole with minimal edema, cannot rule out right pyelonephritis , epiploic appendagitis of the adjacent ascending colon. appendocloth without CT evidence of acute appendicitis, mild smooth thickening of the urinary bladder wall likely due to inadequate distention, mild dilatation of left ureter , without gross evidence of obstructing stone Code(s): N12 - TUBULO-INTERSTITIAL NEPHRITIS, NOT SPCF ACUTE OR CHRONIC
[2019-10-12] MEDS: guaiFENesin/D-METHORPHAN HB 10 ML UNIT-DOSE CUPS PO PRN ×2 (11:14→20:22)
[2019-10-12] MEDS: PANTOPRAZOLE 40 MG TABLET (FP) PO SCH (11:14)
--- NOTE | 2019-10-12 11:44 | PN ---
Progress Note, Physician History of Present Illness: RUQ pain Reports feeling better with decreased pain - Current Medication List Current Medications: Active Medications Guaifenesin (Robitussin Dm -) 10 ml PO Q4H PRN PRN Reason: COUGH Last Admin: 10/12/19 11:14 Dose: 10 ml Heparin Sodium (Porcine) (Heparin -) 5,000 unit SQ TID [facility]LES Last Admin: 10/12/19 05:34 Dose: 5,000 unit Piperacillin Sod/Tazobactam (Sod 4.5 gm/ Dextrose) 100 mls @ 200 mls/hr IVPB Q8H-IV CHARLES; Protocol Last Admin: 10/12/19 10:19 Dose: 200 mls/hr Potassium Chloride/Dextrose/Sod Cl (D5-1/2ns+30 Meq Kcl -) 30 meq in 1,000 mls @ 83 mls/hr IV ASDIR CHARLES Last Admin: 10/12/19 01:15 Dose: 83 mls/hr Ketorolac Tromethamine (Toradol Injection -) 15 mg IVPUSH Q6H PRN PRN Reason: PAIN LEVEL 4 - 6 Stop: 10/15/19 01:45 Last Admin: 10/11/19 22:53 Dose: 15 mg Ondansetron HCl (Zofran Injection) 4 mg IVPUSH Q6H PRN PRN Reason: NAUSEA Pantoprazole Sodium (Protonix -) 40 mg PO DAILY [facility] Last Admin: 10/12/19 11:14 Dose: 40 mg - Objective Vital Signs: Vital Signs Temperature 97.9 F 10/12/19 07:39 Pulse Rate 67 10/12/19 07:39 Respiratory Rate 16 10/12/19 07:39 Blood Pressure 116/70 10/12/19 07:39 O2 Sat by Pulse Oximetry (%) 98 10/11/19 21:00 Labs: CBC, BMP 10/12/19 08:17 10/12/19 08:17 INR, PTT INR 1.70 (0.83-1.09) H 10/11/19 07:10 Problem List - Problems (1) Abnormal LFTs Code(s): R94.5 - ABNORMAL RESULTS OF LIVER FUNCTION STUDIES (2) Coagulopathy Code(s): D68.9 - COAGULATION DEFECT, UNSPECIFIED (3) Epigastric abdominal pain Code(s): R10.13 - EPIGASTRIC PAIN (4) Right upper quadrant abdominal pain Code(s): R10.11 - RIGHT UPPER QUADRANT PAIN (5) Pyelonephritis Code(s): N12 - TUBULO-INTERSTITIAL NEPHRITIS, NOT SPCF ACUTE OR CHRONIC Assessment/Plan %% yr old female with RUQ pain admitted with pyelonephritis and RUq pain and initially elevated LFTs which normalized quickly. Negative HIDA. MRCP report pending Clinically improved Advance diet as tolerated and will await official reading of MRCP
--- NOTE | 2019-10-12 15:25 | PN.GI ---
GI Progress Note Subjective: GI NOte (covering Dr eCrda) ; I reviewed the MRCP and see no GB of CBD stones. She is tolerating the liquids and had a BM today. Her daughter served as ux research associate. - Objective Vital Signs: Vital Signs Temperature 97.9 F 10/12/19 07:39 Pulse Rate 67 10/12/19 07:39 Respiratory Rate 16 10/12/19 07:39 Blood Pressure 116/70 10/12/19 07:39 O2 Sat by Pulse Oximetry (%) 99 10/12/19 09:00 Laboratory Tests 10/10/19 10/12/19 10/12/19 00:16 08:17 08:17 WBC 12.1 H 4.9 Total Bilirubin 0.6 AST 37 ALT 57 Alkaline Phosphatase 106 Constitutional: No Distress ...Auscultate: Yes: Hypoactive Bowel Sounds ...Palpate: Yes: Soft, Other (nontender) Labs: CBC, BMP 10/12/19 08:17 10/12/19 08:17 INR, PTT INR 1.70 (0.83-1.09) H 10/11/19 07:10 Assessment/Plan Assessment - Resolved LFT abnormalities ? reactive hepatopathy to pyelonephritis vs sludge passage Plan: -- Trial of soft diet -- Await official MRCP reading Dr Cerda will return 10/14 Problem List - Problems (1) Abnormal LFTs Code(s): R94.5 - ABNORMAL RESULTS OF LIVER FUNCTION STUDIES (2) Epigastric abdominal pain Code(s): R10.13 - EPIGASTRIC PAIN (3) Pyelonephritis Code(s): N12 - TUBULO-INTERSTITIAL NEPHRITIS, NOT SPCF ACUTE OR CHRONIC
--- NOTE | 2019-10-12 16:09 | PN ---
Progress Note (short form) - Note Progress Note: 1. UTI 2. plyelonephritis 3. elevated LFT Current Medications Guaifenesin (Robitussin Dm -) 10 ml PO Q4H PRN PRN Reason: COUGH Last Admin: 10/12/19 11:14 Dose: 10 ml Heparin Sodium (Porcine) (Heparin -) 5,000 unit SQ TID [facility] Last Admin: 10/12/19 13:10 Dose: 5,000 unit Piperacillin Sod/Tazobactam (Sod 4.5 gm/ Dextrose) 100 mls @ 200 mls/hr IVPB Q8H-IV CHARLES; Protocol Last Admin: 10/12/19 10:19 Dose: 200 mls/hr Potassium Chloride/Dextrose/Sod Cl (D5-1/2ns+30 Meq Kcl -) 30 meq in 1,000 mls @ 83 mls/hr IV ASDIR [facility] Last Admin: 10/12/19 14:30 Dose: 83 mls/hr Ketorolac Tromethamine (Toradol Injection -) 15 mg IVPUSH Q6H PRN PRN Reason: PAIN LEVEL 4 - 6 Stop: 10/15/19 01:45 Last Admin: 10/11/19 22:53 Dose: 15 mg Ondansetron HCl (Zofran Injection) 4 mg IVPUSH Q6H PRN PRN Reason: NAUSEA Pantoprazole Sodium (Protonix -) 40 mg PO DAILY [facility] [place] Last Admin: 10/12/19 11:14 Dose: 40 mg Last Vital Signs Temp Pulse Resp BP Pulse Ox 97.9 F 67 16 116/70 99 10/12/19 07:39 10/12/19 07:39 10/12/19 07:39 10/12/19 07:39 10/12/19 09:00 CBC, BMP 10/12/19 08:17 10/12/19 08:17 s/p hypokalemia
[2019-10-12 20:09] LABS: HEP B CORE AB, TOT Negative (Negative)
[2019-10-13] MEDS ORDERED: DEXTROSE 5%-WATER 100 ML IVPB ONE ×2 (00:45→09:15)
[2019-10-13] MEDS ORDERED: PIPERACILLIN/TAZOBACTAM 4.5 GM VIAL IVPB ONE ×2 (00:45→09:15)
[2019-10-13] MEDS: PIPERACILLIN/TAZOB 4.5 GM 4.5 GM in DEXTROSE 5%-WATER 100 ML IVPB SCH ×2 (01:05→09:18)
[2019-10-13] MEDS: HEPARIN NA (PORCINE) 5,000 UNITS/ML 1ML VIAL SQ SCH (06:54)
[2019-10-13] MEDS: D5-1/2NS+30 MEQ KCL - 30 MEQ/1,000 ML INFUS.BAG IV SCH (06:54)
[2019-10-13] MEDS: PANTOPRAZOLE 40 MG TABLET (FP) PO SCH (09:17)
--- NOTE | 2019-10-13 10:17 | PN ---
Progress Note, Physician Chief Complaint: Pyelonephritis History of Present Illness: NAD Feels a lot better daughter at bedside CXR unremarkable,+atelectasis, encouraged IS MRI preliminary report: mild right hydronephrosis and hydroureter, mild thickening of right urothelium,, significant edema around gallbladder and extending in the right paracolic gutter concerning for cholecyctitis (likely chronic) - Current Medication List Current Medications: Active Medications Guaifenesin (Robitussin Dm -) 10 ml PO Q4H PRN PRN Reason: COUGH Last Admin: 10/12/19 20:22 Dose: 10 ml Heparin Sodium (Porcine) (Heparin -) 5,000 unit SQ TID [facility] Last Admin: 10/13/19 06:54 Dose: 5,000 unit Piperacillin Sod/Tazobactam (Sod 4.5 gm/ Dextrose) 100 mls @ 200 mls/hr IVPB Q8H-IV CHARLES; Protocol Last Admin: 10/13/19 09:18 Dose: 200 mls/hr Potassium Chloride/Dextrose/Sod Cl (D5-1/2ns+30 Meq Kcl -) 30 meq in 1,000 mls @ 83 mls/hr IV ASDIR [facility] Last Admin: 10/13/19 06:54 Dose: 83 mls/hr Ketorolac Tromethamine (Toradol Injection -) 15 mg IVPUSH Q6H PRN PRN Reason: PAIN LEVEL 4 - 6 Stop: 10/15/19 01:45 Last Admin: 10/11/19 22:53 Dose: 15 mg Ondansetron HCl (Zofran Injection) 4 mg IVPUSH Q6H PRN PRN Reason: NAUSEA Pantoprazole Sodium (Protonix -) 40 mg PO DAILY [facility] Last Admin: 10/13/19 09:17 Dose: 40 mg - Objective Vital Signs: Vital Signs Temperature 98 F 10/12/19 22:00 Pulse Rate 80 10/12/19 22:00 Respiratory Rate 16 10/12/19 22:00 Blood Pressure 111/71 10/12/19 22:00 O2 Sat by Pulse Oximetry (%) 97 10/12/19 21:00 Constitutional: Yes: Well Nourished, No Distress, Calm Cardiovascular: Yes: Regular Rate and Rhythm Respiratory: Yes: Regular Gastrointestinal: Yes: Normal Bowel Sounds, Soft Genitourinary: Yes: WNL Musculoskeletal: Yes: WNL Extremities: Yes: WNL Edema: No Peripheral Pulses WNL: Yes Neurological: Yes: Alert, Oriented Psychiatric: Yes: Alert, Oriented Labs: CBC, BMP 10/12/19 08:17 10/12/19 08:17 INR, PTT INR 1.70 (0.83-1.09) H 10/11/19 07:10 Assessment/Plan (1) Right upper quadrant abdominal pain Assessment/Plan: -Resolved -Abdominal US shows thickening of gallbladder wall with a questionable small sludge and without evidence of gallstones, positive Fields's sign, cannot rule out acute cholecystitis, right hepatic lobe echogenic lesion 2.3cmin maximum dimension that may represent cavernous hemangioma -CTAP shows minimal bibasal atelectatic changes, mild stranding around the right renal lower pole with minimal edema, cannot rule out right pyelonephritis , epiploic appendagitis of the adjacent ascending colon. appendocloth without CT evidence of acute appendicitis, mild smooth thickening of the urinary bladder wall likely due to inadequate distention, mild dilatation of left ureter , without gross evidence of obstructing stone -leukocytosis -afebrile -Surgery Consult appreciated- no surgical intervention recommended at this time -HIDA scan with EF not c/w acute-dilation---Abdominal US shows thickening of gallbladder wall with a questionable small sludge and without evidence of gallstones, positive Fields's sign, cannot rule out acute cholecystitis, right hepatic lobe echogenic lesion 2.3cmin maximum dimension that may represent cavernous hemangioma -MRCP results pending -leukocytosis Resolved -afebrile -Surgery Consult -pain control -IV hydration -Clear liquid diet -Zofran for nausea PRN Code(s): R10.11 - RIGHT UPPER QUADRANT PAIN (2) Abnormal LFTs Assessment/Plan: -normalized -LFTs showing downtrend -2/2 to levaquin? Code(s): R94.5 - ABNORMAL RESULTS OF LIVER FUNCTION STUDIES (3) Coagulopathy Assessment/Plan: improving--inr--1.7 Code(s): D68.9 - COAGULATION DEFECT, UNSPECIFIED (4) Liver lesion Assessment/Plan: -probably hemangioma -MRI preliminary results as above Code(s): K76.9 - LIVER DISEASE, UNSPECIFIED (5) Pyelonephritis Assessment/Plan: -ID consult -Leukocytosis -afebrile -Zosyn-received 3 days - Microbiology 10/10/19 01:08 Urine - Urine Clean Catch Urine Culture - Final NO GROWTH OBTAINED 10/09/19 00:16 Blood - Peripheral Venous Blood Culture - Preliminary NO GROWTH OBTAINED AFTER 24 HOURS, INCUBATION TO CONTINUE FOR 4 DAYS. 10/09/19 00:16 Blood - Peripheral Venous Blood Culture - Preliminary NO GROWTH OBTAINED AFTER 24 HOURS, INCUBATION TO CONTINUE FOR 4 DAYS. -CTAP shows minimal bibasal atelectatic changes, mild stranding around the right renal lower pole with minimal edema, cannot rule out right pyelonephritis , epiploic appendagitis of the adjacent ascending colon. appendocloth without CT evidence of acute appendicitis, mild smooth thickening of the urinary bladder wall likely due to inadequate distention, mild dilatation of left ureter , without gross evidence of obstructing stone -d/c home on augmentin 1 tab bid x 5 days Code(s): N12 - TUBULO-INTERSTITIAL NEPHRITIS, NOT SPCF ACUTE OR CHRONIC
[2019-10-13 10:22] VITALS: BP 125/67; PULSE 71; TEMP 97.9
--- NOTE | 2019-10-13 11:24 | PN ---
Progress Note (short form) - Note Progress Note: 54 yr old admitted with RUQ pain elevated lft's, negative HIDA Clinically feeling better tolerating diet denies pain Exam nontender WBC 4.9 LFTs wnl Prelim MRI report reviewed and consistent with findings from ultrasound and Ct A/P Chronic Cholecystitis In absence of cystic duct obstruction and clinical improvement we can consider outpatient elective Lap. Cholecystectomy unless she has recurrence of symptoms Problem List - Problems (1) Abnormal LFTs Code(s): R94.5 - ABNORMAL RESULTS OF LIVER FUNCTION STUDIES (2) Coagulopathy Code(s): D68.9 - COAGULATION DEFECT, UNSPECIFIED (3) Epigastric abdominal pain Code(s): R10.13 - EPIGASTRIC PAIN (4) Right upper quadrant abdominal pain Code(s): R10.11 - RIGHT UPPER QUADRANT PAIN (5) Pyelonephritis Code(s): N12 - TUBULO-INTERSTITIAL NEPHRITIS, NOT SPCF ACUTE OR CHRONIC
--- NOTE | 2019-10-13 12:01 | PN.GI ---
GI Progress Note Subjective: GI NOte ( covering Dr Cerda): Tolerated solid diet. Pain free. - Objective Vital Signs: Vital Signs Temperature 97.9 F 10/13/19 10:00 Pulse Rate 71 10/13/19 10:00 Respiratory Rate 20 10/13/19 10:00 Blood Pressure 125/67 10/13/19 10:00 O2 Sat by Pulse Oximetry (%) 97 10/12/19 21:00 Constitutional: Calm ...Auscultate: Yes: Normoactive Bowel Sounds ...Palpate: Yes: Soft, Other (nontender) Labs: CBC, BMP 10/12/19 08:17 10/12/19 08:17 INR, PTT INR 1.70 (0.83-1.09) H 10/11/19 07:10 Assessment/Plan Assessment - Chronic cholecystitis - Reolved LFT abnormalities ? reactive hepatopathy to cholecystitis vs sludge or single stone passage Plan: -- No GI objections to discharge Discussed with Dr Pfeiffer Problem List - Problems (1) Abnormal LFTs Code(s): R94.5 - ABNORMAL RESULTS OF LIVER FUNCTION STUDIES (2) Epigastric abdominal pain Code(s): R10.13 - EPIGASTRIC PAIN (3) Pyelonephritis Code(s): N12 - TUBULO-INTERSTITIAL NEPHRITIS, NOT SPCF ACUTE OR CHRONIC
--- NOTE | 2019-10-30 15:08 | EKG ---
Test Reason : Blood Pressure : / mmHG Vent. Rate : 084 BPM Atrial Rate : 084 BPM P-R Int : 138 ms QRS Dur : 088 ms QT Int : 380 ms P-R-T Axes : 052 070 043 degrees QTc Int : 449 ms NORMAL SINUS RHYTHM NORMAL ECG WHEN COMPARED WITH ECG OF 09-OCT-2019 23:52, NO SIGNIFICANT CHANGE WAS FOUND Confirmed by MILAGRO OLIVAREZ MD ([id number]) on 10/30/2019 3:08:36 PM Referred By: Confirmed By:MILAGRO OLIVAREZ MD
== END 2019-10-13 13:11 | disposition home or self-care (01) ==
LOC: JER 23:19 → JERBED 10-10 00:37 → J6S 10-10 15:57
PROVIDERS: ADMIT Internal Medicine; ATTEND Family Medicine
DX: K81.1 Chronic cholecystitis (principal); N39.0 Urinary tract infection, site not specified; R94.5 Abnormal results of liver function studies; D72.829 Elevated white blood cell count, unspecified; R10.13 Epigastric pain; D68.9 Coagulation defect, unspecified; K76.9 Liver disease, unspecified; N12 Tubulo-interstitial nephritis, not specified as acute or chronic; E87.6 Hypokalemia; N13.30 Unspecified hydronephrosis; J98.11 Atelectasis; R10.11 Right upper quadrant pain
CPT/HCPCS: 36415; 71045-TC-FY; 74176-TC; 74183-TC; 76705-TC; 78227-TC; 80053; 80076; 81003; 82550; 82962; 83605; 83690; 83735; 84100; 84484; 85025; 85610; 85730; 86704; 86706; 86707; 86708; 86709; 86803; 87040; 87086; 87340; 93005; 93010; 99285-25; A9537; A9579; J0131; J1644; J7030

== ENCOUNTER 2021-10-12 21:15 | Observation (INO) | payer OTHER ==
[2021-10-12 21:56] VITALS: BMI 23.3
[2021-10-12] MEDS ORDERED: ASPIRIN 81 MG CHEWABLE TABLETS PO ONE (23:46)
[2021-10-13 00:31] LABS: BASO % 0.4 % (0-2.0); EOS % 6.1 % (0-4.5); HEMATOCRIT 39.4 % (32.4-45.2); HEMOGLOBIN 13.4 GM/dL (10.7-15.3); LYMPH % 38.7 % (8-40); MCH 28.9 pg (25.7-33.7); MCHC 33.9 g/dl (32.0-36.0); MEAN CELL VOLUME 85.1 fl (80-96); MEAN PLT VOLUME 9.3 fl (7.5-11.1); NEUT % 44.8 % (42.8-82.8); PLATELET COUNT 200 10^3/uL (134-434); RBC 4.63 M/mm3 (3.60-5.2); RDW 12.7 % (11.6-15.6); WHITE BLOOD COUNT 6.8 K/mm3 (4.0-10.0)
[2021-10-13] MEDS ORDERED: ASPIRIN 81 MG CHEWABLE TABLETS ONE (00:43)
[2021-10-13 00:48] LABS: CHLORIDE 107 mmol/L (98-107); SODIUM 141 mmol/L (136-145)
[2021-10-13 00:50] LABS: CALCIUM 9.2 mg/dL (8.5-10.1)
[2021-10-13 00:51] LABS: ALBUMIN 3.9 g/dl (3.4-5.0); ANION GAP 7 MMOL/L (8-16); BLOOD UREA NITROGEN 18.3 mg/dL (7-18); CO2 28 mmol/L (21-32); GLUCOSE,RANDOM 115 mg/dL (74-106)
[2021-10-13 00:54] LABS: CREATININE 0.7 mg/dL (0.55-1.3); SGOT/AST 19 U/L (15-37); SGPT/ALT 26 U/L (13-61)
[2021-10-13 00:56] LABS: BILIRUBIN,TOTAL 0.2 mg/dL (0.2-1)
[2021-10-13 00:57] LABS: ALK PHOS 79 U/L (45-117); TOT PROT 7.3 g/dl (6.4-8.2)
[2021-10-13] MEDS ORDERED: ACETAMINOPHEN 1000 MG/100 ML VIAL IVPB PRN (02:19)
[2021-10-13 08:02] VITALS: TEMP 97.9
[2021-10-13 08:08] LABS: BASO % 0.6 % (0-2.0); EOS % 7.4 % (0-4.5); HEMATOCRIT 38.6 % (32.4-45.2); HEMOGLOBIN 13.1 GM/dL (10.7-15.3); MCH 29.1 pg (25.7-33.7); MCHC 33.9 g/dl (32.0-36.0); MEAN CELL VOLUME 85.7 fl (80-96); MEAN PLT VOLUME 9.5 fl (7.5-11.1); MONO % 9.2 % (3.8-10.2); NEUT % 45.8 % (42.8-82.8); PLATELET COUNT 179 10^3/uL (134-434); RBC 4.51 M/mm3 (3.60-5.2); RDW 12.6 % (11.6-15.6); WHITE BLOOD COUNT 4.8 K/mm3 (4.0-10.0)
[2021-10-13 08:28] LABS: BLOOD UREA NITROGEN 13.9 mg/dL (7-18); CALCIUM 9.1 mg/dL (8.5-10.1); CO2 30 mmol/L (21-32); GLUCOSE,RANDOM 87 mg/dL (74-106); MAGNESIUM 2.5 mg/dL (1.8-2.4)
[2021-10-13 08:32] LABS: CREATININE 0.6 mg/dL (0.55-1.3)
[2021-10-13 09:32] LABS: ANION GAP 6 MMOL/L (8-16); CHLORIDE 107 mmol/L (98-107); SODIUM 142 mmol/L (136-145)
[2021-10-13] MEDS ORDERED: HEPARIN NA (PORCINE) 5,000 UNITS/ML 1ML VIAL SQ SCH (10:00)
[2021-10-13 12:09] VITALS: BP 111/69; PULSE 73
[2021-10-13] MEDS ORDERED: ROSUVASTATIN CA 5 MG TABLET (FP) PO SCH (22:00)
[2021-10-14] MEDS ORDERED: ASPIRIN 81 MG CHEWABLE TABLETS PO SCH (10:00)
== END 2021-10-13 12:15 | disposition home or self-care (01) ==
LOC: JER 21:15 → JERBED 10-13 01:45
PROVIDERS: ADMIT Internal Medicine; ATTEND Family Medicine
DX: N12 Tubulo-interstitial nephritis, not specified as acute or chronic (principal); E78.5 Hyperlipidemia, unspecified; R07.1 Chest pain on breathing
CPT/HCPCS: 36415; 71046-TC-FY; 80048; 80053; 82550; 83735; 84443; 84484; 85025; 93005; 93010; 99285-25; C9803; G0378; U0003; U0005

== ENCOUNTER 2023-08-28 23:34 | Emergency (ER) | payer OTHER ==
[2023-08-28 23:48] VITALS: BP 143/86; PULSE 90; RESP 16; TEMP 97.7; BMI 23.8
[2023-08-29] MEDS ORDERED: guaiFENesin/CODEINE 10 ML UNIT-DOSE CUPS PO ONE (00:07)
[2023-08-29] MEDS ORDERED: guaiFENesin/CODEINE 10 ML UNIT-DOSE CUPS ONE (00:08)
== END 2023-08-29 00:19 | disposition home or self-care (01) ==
LOC: FER 23:34
DX: R05.9 Cough, unspecified (principal); R09.3 Abnormal sputum; J02.9 Acute pharyngitis, unspecified; R49.0 Dysphonia; J04.2 Acute laryngotracheitis; J40 Bronchitis, not specified as acute or chronic; Z20.822 Contact with and (suspected) exposure to COVID-19
CPT/HCPCS: 0241U-QW; 87651; 99283-25